=== PATIENT | male | born 1970 | race Caucasian/White ===

== ENCOUNTER 2021-01-01 09:29 | Inpatient (IN) ==
--- NOTE | 2020-11-27 15:02 | PAT Medication Instructions ---
Medication Instructions Date of Service November 27, 2020 Home Medications buprenorphine-naloxone [Suboxone] 0.3 tab SUBLINGUAL Q4H pregabalin [Lyrica] 150 mg PO TID venlafaxine 150 mg PO HS ASK your prescriber and surgeon buprenorphine-naloxone [Suboxone] 0.3 tab SUBLINGUAL Q4H Take morning of surgery With a small sip of water, OTHERWISE NOTHING TO EAT OR DRINK AFTER MIDNIGHT: pregabalin [Lyrica] 150 mg PO TID Take evening before surgery pregabalin [Lyrica] 150 mg PO TID venlafaxine 150 mg PO HS Other Notes If you have any questions please call us at [phone] or [phone] or [phone] or [phone]
--- NOTE | 2020-12-01 10:34 | Anesthesiology Consultation ---
Date of Service December 01, 2020 Assessment & Plan (1) Encounter for pre-operative examination: - COVID screening: Per assessment on 12/01: Travel screen- Lives in [facility]. Travel to [facility] (owns cabin there, stays alone every other week end). Patient follows strict COVID precautions guidelines in public. Uses PPE. No out of state travel planned prior to surgery. No known COVID-19 positive contacts or current COVID-19 related symptoms. Surgeon arranging preop COVID testing. Awaiting results. - Suboxone use: Per patient, he denies any hx of opioid dependence and states he was started and continued on Suboxone many years ago for chronic pain. He states he is attempting to wean off prior to surgery but will let anesthesiologist know AM DOS if still taking. He will check with prescriber for preop instructions. Chart Review Chart Review: Acceptable Risk for Surgery and Patient seen in Pre Admission Testing Teaching & Discussion Pre-Anesthesia Teaching/Discussion Notes: Instructed NPO after midnight before surgery,except medications with 15 cc of water. Medication instructions provided according to the PAT guidelines. History Surgery Operation Date: 12/15/20 07:45 Proposed Procedures p L2-L3 Decompression, L2-L4 Fusion, L3-L5 Hardware Removal - Ronnie Quintana, Height/Weight Height: 5 ft 9 in Weight: 131 kg Allergies Allergy/AdvReac Type Severity Reaction Status Date / Time Iodinated Contrast Media Allergy Unknown Itching, Verified 12/01/20 10:34 swelling iodine Allergy Unknown Itching, Verified 12/01/20 10:34 swelling shellfish derived Allergy Unknown Swelling Verified 12/01/20 08:30 Medications Home Medications Medication Instructions Recorded Confirmed Last Taken buprenorphine-naloxone [Suboxone] 0.3 tab SUBLINGUAL Q4H 11/10/20 11/10/20 Unknown pregabalin [Lyrica] 150 mg PO TID 11/10/20 11/10/20 Unknown venlafaxine 150 mg PO HS 11/10/20 11/10/20 Unknown Past Medical History Medical History Anxiety Arthritis Chronic back pain LBP Depression Exercise / Class Metabolic Activity II 4-5 Yardwork/Stairs/Walk up hill Past Surgical History Surgical History Fusion of spine Lumbar History of arthroscopy Right knee x multiple History of eye surgery Right retinal repair History of sinus surgery History of tonsillectomy Past Anesthesia History No Hx of Anesthesia Complications and No Family Hx of Anesthesia Complications History of PONV No Hx of PONV and No Hx of Motion Sickness Social History Smoking Status: Current every day smoker Smoking cigarettes per day: 20 cigs/day x 20+ years Do You Dip or Chew Tobacco: Yes (1 can (Skoal)/2 days- advised none AM DOS) Hx Alcohol Use: No Hx Substance Use: Yes (Suboxone daily for pain control) Review of Systems Patient denies chest pain, shortness of breath, dyspnea on exertion, joint pain, reflux, cough, wheezing, palpitations. Physical Exam Vital Signs VITALS BP 118/79 P 71 TEMP 97.8 SP02 96%RA RESP 16 PHYSICAL Full neck and c-spine range of motion. Full TMJ range of motion. TMD 3 finger breaths Mallampati Score 2 Dentition: missing molars Lungs: clear throughout to auscultation Cardiac: regular rate and rhythm, no murmurs noted Spine: normal Carotid arteries: negative bruit Extremities: no edema Short, thick neck Testing Laboratory Results 12/01/20 11:12 12/01/20 11:12 PT 10.0 Seconds (9.0-12.0) 12/01/20 11:12 INR 1.0 (0.9-1.1) 12/01/20 11:12 APTT 27.0 Seconds (21.0-31.0) 12/01/20 11:12 Urine Color Yellow 12/01/20 11:12 Urine Appearance Clear (Clear) 12/01/20 11:12 Urine pH 6.0 (4.5-7.5) 12/01/20 11:12 Ur Specific [place] 1.024 (1.000-1.030) 12/01/20 11:12 Urine Protein Negative (Negative) 12/01/20 11:12 Urine Glucose (UA) Negative (Negative) 12/01/20 11:12 Urine Ketones Negative (Negative) 12/01/20 11:12 Urine Nitrite Negative (Negative) 12/01/20 11:12 Ur Leukocyte Esterase Negative (Negative) 12/01/20 11:12 Blood Type O Positive 12/01/20 11:12 Antibody Screen NEGATIVE 12/01/20 11:12 Electrocardiogram Date: 12/01/20 Findings: + NSR @ (63) Chest X-Ray Date: 12/01/20 FINDINGS: Cardiac silhouette is upper limits of normal in size. Mediastinal contours are unchanged and within normal limits. There is no pneumothorax, pleural effusion, airspace consolidation or overt pulmonary edema. Bones of the chest appear grossly intact. IMPRESSION: No acute process.
--- NOTE | 2020-12-01 11:47 | XRay Report ---
XR chest Pre-admission PA/Lat HISTORY: 50 years-old Male pat preoperative exam. No acute chest complaints COMPARISON: Chest radiographs 11/08/2011 TECHNIQUE: PA and lateral views of the chest FINDINGS: Cardiac silhouette is upper limits of normal in size. Mediastinal contours are unchanged and within n ormal limits. There is no pneumothorax, pleural effusion, airspace consolidation or overt pulmonary e vineet. Bones of the chest appear grossly intact. IMPRESSION: No acute process. ACT 112: Negative or not required by law. The above report was generated using voice recognition software. It may contain grammatical, syntax o r spelling errors. Electronically signed by: Castro Villanueva M.D. 12/01/2020 11:46 AM
[2020-12-01 12:51] LABS: Appearance Urine Clear (Clear); Basophils # (auto) 0.05 K/uL (0-0.2); Basophils % (auto) 0.5 %; Bilirubin Urine Negative (Negative); Blood Urine Negative (Negative); Color Urine Yellow; Eosinophils % (auto) 3.3 %; Glucose Urine UA Negative (Negative); Hematocrit (blood only) 43.8 % (42-52); Immature Granulocytes # (auto) 0.04 K/uL (0.00-0.02); Immature Granulocytes % (auto) 0.4 %; Ketones Urine Negative (Negative); Leukocyte Esterase Urine Negative (Negative); Lymphocytes # (auto) 3.54 K/uL (1.2-3.4); Lymphocytes % (auto) 38.4 %; Mean Corpuscular Hgb Conc 34.2 g/dL (32-36); Mean Corpuscular Volume 93.4 fL (80-100); Mean Platelet Volume 10.5 fL (7.4-10.4); Monocytes # (auto) 0.44 K/uL (0.11-0.59); Monocytes % (auto) 4.8 %; Neutrophils # (auto) 4.86 K/uL (1.4-6.5); Neutrophils % (auto) 52.6 %; Nitrite Urine Negative (Negative); Platelet Count 263 K/uL (130-400); Protein Urine Negative (Negative); RDW Standard Deviation 44.8 fL (36.4-46.3); Red Blood Count 4.69 M/uL (4.7-6.1); Specific Gravity Urine 1.024 (1.000-1.030); Urobilinogen Urine Negative (Negative); White Blood Count 9.23 K/uL (4.8-10.8)
[2020-12-01 14:44] LABS: BUN Creatinine Ratio 12.8 (10-20); Calcium 9.4 mg/dl (8.5-10.1); Creatinine Clr Calc Pharmacy 128.9 ml/min; Est GFR (African American) 111.3; Est GFR (Non-African American) 96.1; Potassium 4.6 mmol/L (3.5-5.1)
--- NOTE | 2020-12-01 21:08 | Electrocardiogram Report ---
Test Reason : Blood Pressure : / mmHG Vent. Rate : 063 BPM Atrial Rate : 063 BPM P-R Int : 128 ms QRS Dur : 082 ms QT Int : 388 ms P-R-T Axes : 051 024 050 degrees QTc Int : 397 ms Normal sinus rhythm Normal ECG When compared with ECG of 08-NOV-2011 09:10, No significant change was found Confirmed by Hank Stringer ([id number]) on 12/01/2020 9:08:29 PM Referred By: Ronnie Quintana Confirmed By:Hank Stringer
[~2021-01-01 09:29] MED LIST: ACETAMINOPHEN 500 MG TAB PO SCH; CeleBREX 200 MG CAP PO SCH; GABAPENTIN 900 MG DOSE PO SCH; LR 15ML/HR IV SCH; SUGAMMADEX SODIUM 200 MG/2 ML VIAL IV ONE
[2021-01-01] MEDS ORDERED: GLYCOPYRROLATE 0.2 MG/ML VIAL ONE (10:00)
[2021-01-01] MEDS ORDERED: PROPOFOL IV EMULSION 10 MG/ML 20 ML VIAL IV ONE (10:00)
[2021-01-01] MEDS ORDERED: MIDAZOLAM HCL 1 MG/ML 2ML VIAL ONE (10:00)
[2021-01-01] MEDS ORDERED: DEXAMETHASONE SOD INJ 4 MG/ML VIAL ONE (10:00)
[2021-01-01] MEDS ORDERED: ONDANSETRON INJ 2 MG/ML 2 ML VIAL ONE (10:00)
[2021-01-01] MEDS ORDERED: LIDOCAINE HCL 2% 2 ML VIAL/AMP(20MG/ML) INFIL ONE (10:00)
[2021-01-01] MEDS ORDERED: NEOSTIGMINE METHYLSULFATE 1 MG/ML 10ML VIAL ONE (10:00)
[2021-01-01] MEDS ORDERED: fentaNYL citrate 100 MCG/2 ML VIAL ONE (10:01)
--- NOTE | 2021-01-01 10:24 | History & Physical Bridge Note ---
Date of Service January 01, 2021 History & Physical Bridge Note I have examined the patient, reviewed the History & Physical and in the interval since the performance of the History & Physical I have noted the following changes of clinical significance: no changes noted
--- NOTE | 2021-01-01 10:25 | History & Physical Report ---
Date of Service January 01, 2021 Assessment & Plan (1) Neurogenic claudication due to lumbar spinal stenosis: Admission and Anticipated Discharge Date Admission Date: L2-L3 decompression, L2 L4 fusion, L3-L5 hardware removal History of Present Illness Chief Complaint: Back and leg pain Primary Care Provider: Barbie Zayas MD This is a 50-year-old male presents with chronic chest and back and leg pain. Failing course of nonoperative care is here for surgical invention. Allergies Allergy/AdvReac Type Severity Reaction Status Date / Time Iodinated Contrast Media Allergy Intermediate Itching, Verified 01/01/21 09:45 swelling iodine Allergy Intermediate Itching, Verified 01/01/21 09:45 swelling shellfish derived Allergy Intermediate Swelling Verified 01/01/21 09:45 Home Medications Medication Instructions Recorded Confirmed Type buprenorphine-naloxone [Suboxone] 0.3 tab SUBLINGUAL Q4H 11/10/20 01/01/21 History pregabalin [Lyrica] 150 mg PO TID 11/10/20 01/01/21 History venlafaxine 150 mg PO HS 11/10/20 01/01/21 History menthol [Biofreeze (menthol)] 1 applic TOPICAL TID PRN 01/01/21 01/01/21 History oxycodone-acetaminophen [Percocet] 1 tab PO Q4H PRN 01/01/21 01/01/21 History Past Med/Surg History Medical History (Updated 01/01/21 @ 10:25 by Ronnie Quintana DO) Anxiety Arthritis Chronic back pain LBP Depression History of COVID-19 Tested positive on 12/11/20. Pt was tested for preop testing. Patient was asymptomatic and remains asymptomatic at this time (12/27/20). 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
[2021-01-01] MEDS ORDERED: BUPIVACAINE/EPINEPHRINE 0.5% MPF 1:200,000 30 ML VIAL ONE (10:34)
[2021-01-01] MEDS ORDERED: BACITRACIN INJ 50,000 UNIT VIAL ONE (10:35)
[2021-01-01] MEDS ORDERED: ePHEDrine sulfate 50 MG/ML AMP IV PRN (10:37)
[2021-01-01] MEDS ORDERED: HYDROmorphone INJ 1 MG/ML SYRINGE IV PRN (10:37)
[2021-01-01] MEDS ORDERED: ONDANSETRON INJ 2 MG/ML 2 ML VIAL IV PRN ×2 (10:37→14:14)
[2021-01-01] MEDS ORDERED: ATROPINE SULFATE 0.1 MG/ML 10ML SYR IV PRN (10:37)
[2021-01-01] MEDS ORDERED: HYDROmorphone INJ 2 MG/ML SYR/VIAL ONE (11:18)
[2021-01-01] MEDS ORDERED: FLOSEAL HEMOSTATIC MATRIX 10ML TOP ONE (11:45)
--- NOTE | 2021-01-01 12:42 | Operative Report ---
Post Operative Report Pre & Post Diagnosis Operation Date: 01/01/21 10:55 Pre-Op Diagnosis: Lumbar spinal stenosis with neurogenic claudication Post-Op Diagnosis: Same I identified the patient and participated in the time-out.: Yes Procedure Operation Date: 01/01/21 10:55 Actual Procedures #1 removal of posterior instrumentation L3-4 L4-5. #2 exploration of lumbar fusion L3-4 L4-5. #3 lumbar decompression with bilateral medial facetectomies and foraminotomies L1-2 and L2-3. #4 posterior spinal fusion L2-3. #5 placement posterior instrumentation L2-3 L3-4. #6 interbody fusion L2-3. #7 placement peek cage 13 x 26 mm at L2-3. #8 placement of locally harvested morselized autograft in the posterior lateral gutters. #9 placement of I factor in the interbody space and posterior lateral gutters. Surgeon Ronnie Quintana, DO Wood Gouger Nay Mcknight Estimated Blood Loss 250 Findings See Below The patient is 5 foot 9 inches tall weighing over 128 kg with a BMI in excess of 41. The patient's body habitus did contribute to significant technical difficulty adding at least 50% increase to the operative time. Specimens None Indications This is a 50-year-old male who presents above-mentioned diagnosis after failing course of nonoperative care is here for the above-mentioned procedure. Description of Procedure Patient was met with identified informed consent obtained. Patient was then taken to the operative suite underwent a patient placed in a prone position the [place] table top Manohar frame. All bony prominences well-padded eyes inspected to ensure no external pressure placed upon them. At this point the lumbar spine was prepped and draped in a sterile fashion. Sharp dissection with the assistance of Bovie cautery was performed down to and exposing the lamina and transverse processes of L2 and the instrumentation at L3-L4-L5 bilaterally. And then proceeded move the hardware bilaterally explore the fusion mass noting it to be mature and intact. Then performed a complete laminectomy of L2 partial laminectomy L1 including bilateral medial facetectomies and foraminotomies addressing severe spinal stenosis. Pedicle screws were then placed in L2-L3-L4 bilaterally with assistance of fluoroscopy and the proper sized sharmila placed. By way of a transforaminal portion left complete discectomy of L2-3 was performed endplates curetted to subcortical bleeding bone and a 13 x 26 mm peek cage filled with I factor tapped in position. The rods were then compressed locked into final position bilaterally. The transverse processes of L2 and L3 burred to subcortically bone. Locally harvested morselized autograft and I factor was then placed in the posterior lateral gutters. 15 round BROOK drain inserted. The incision was then closed with 1 Vicryl the fascia 2-0 Vicryl subcutaneously and 4 Monocryl for final skin closure. Steri-Strip sterile dressings placed. Patient will continue PACU stable condition. Please note spinal cord monitoring was utilized at the procedure no changes noted. Lastly Nay Mcknight was present throughout the entire procedure involved the patient positioning complex portions of the surgery and final skin closure. I attest to the content of the Intraoperative Record and any orders documented therein. Any exceptions are noted below.
--- NOTE | 2021-01-01 13:02 | Fluoroscopy Report ---
FL lumbar spine 2-3V HISTORY: 50 years-old Male L3-5 REMOVE HARDWARE/L2-4 DECOMPRESSION/FUSION/INTERBODY chronic low back pain COMPARISON: Lumbar spine radiographs the 2011 TECHNIQUE: 3 spot fluoroscopic images of the lumbar spine were obtained utilizing 12.8 seconds fluoro scopy time FINDINGS: Posterior interbody sharmila fusion hardware is noted at what appears to be the L2-L4 levels with discecto my changes at L2-L3. Discectomy changes at L4-L5 with interval removal of the L5 pedicle screws. The hardware appears intact. No retained foreign body identified on these images. IMPRESSION: Fluoroscopic assistance as above. ACT 112: Negative or not required by law. The above report was generated using voice recognition software. It may contain grammatical, syntax o r spelling errors. Electronically signed by: Castro Villanueva M.D. 01/01/2021 1:01 PM
[2021-01-01] MEDS: fentaNYL citrate 100 MCG/2 ML VIAL IV PRN ×4 (13:25→13:40)
[2021-01-01] MEDS ORDERED: diphenhydrAMINE Capsule 25 MG CAP PO PRN (14:14)
[2021-01-01] MEDS ORDERED: LORazepam 0.5 MG TAB PO PRN (14:14)
[2021-01-01] MEDS ORDERED: DO NOT ADMINISTER PNEUMOCOCCAL VACCINE PRN (14:14)
[2021-01-01] MEDS ORDERED: HYDROmorphone INJ 0.5 MG/0.5 ML SYR IV PRN (14:14)
[2021-01-01] MEDS ORDERED: PROMETHAZINE HCL 12.5 MG in SODIUM CHLORIDE 0.9% 50 ML IV PRN (14:14)
[2021-01-01] MEDS ORDERED: ONDANSETRON 4 MG OD TAB PO PRN (14:14)
[2021-01-01] MEDS ORDERED: ACETAMINOPHEN 500 MG TAB PO PRN (14:14)
[2021-01-01] MEDS ORDERED: hydrOXYzine HCl 25 MG TAB PO PRN (14:14)
[2021-01-01] MEDS ORDERED: FAMOTIDINE 20 MG TAB PO PRN (14:14)
[2021-01-01] MEDS ORDERED: bisacodyL 10 MG SUPP PR PRN (14:14)
[2021-01-01] MEDS ORDERED: LORazepam 0.5 MG/1 ML VIAL IV PRN (14:14)
[2021-01-01] MEDS ORDERED: SOD PHOSPHATE/SOD BIPHOSPHATE ENEMA 132 ML BTL PR PRN (14:14)
[2021-01-01] MEDS ORDERED: METOCLOPRAMIDE HCL INJ 5 MG/ML 2 ML VIAL IV PRN (14:14)
[2021-01-01] MEDS ORDERED: NALOXONE HCL 0.4 MG/1 ML VIAL/CARP IV PRN (14:14)
[2021-01-01] MEDS ORDERED: MAGNESIUM HYDROXIDE SUSP 30 ML UDC PO PRN (14:14)
[2021-01-01] MEDS ORDERED: ALUMINUM/MAGNESIUM SUSP 30 ML UDC PO PRN (14:14)
[2021-01-01] MEDS ORDERED: DO NOT ADMINISTER FLU VACCINE PRN (14:14)
--- NOTE | 2021-01-01 14:31 | Anesthesiology Progress Note ---
Date of Service January 01, 2021 Anesthesia Post Procedure Vital Signs Vital Signs: Temp Pulse Resp BP Pulse Ox 01/01/21 13:55 88 17 138/95 96 01/01/21 13:50 97.5 F L 83 15 127/91 98 01/01/21 13:40 100 H 17 154/97 H 96 01/01/21 13:30 98 H 13 173/101 H 94 01/01/21 13:20 106 H 16 149/108 H 98 01/01/21 13:10 94 H 20 168/102 H 94 01/01/21 13:00 97.5 F L 102 H 12 176/104 H 94 01/01/21 09:56 98.1 F 84 20 134/92 96 Pain Intensity Lower Back: Pain Intensity: 6 Transfer of Care Handoff Completed per policy Notes Mental Status: alert / awake / arousable and participated in evaluation Patient Amnestic to Procedure: Yes Nausea / Vomiting: adequately controlled Pain: adequately controlled Airway Patency, RR, SpO2: stable & adequate BP & HR: stable & adequate Hydration State: stable & adequate Anesthetic Complications: no major complications apparent and Pt Satisfied with anesthetic care
[2021-01-01] MEDS: HYDROmorphone INJ 1 MG/ML SYRINGE IV PRN ×2 (14:33→17:43)
[2021-01-01] MEDS: LACTATED RINGER'S 1,000 ML IV SCH ×2 (14:34→20:57)
[2021-01-01] MEDS: PREGABALIN 150 MG CAP PO SCH ×2 (14:53→20:56)
[2021-01-01] MEDS: oxyCODONE HCL IR 5 MG TAB (IMMEDIATE RELEASE) PO PRN ×3 (15:13→20:56)
[2021-01-01] MEDS: ACETAMINOPHEN 1,000 MG/100 ML VIAL IV PRN (15:13)
--- NOTE | 2021-01-01 15:21 | Hospitalist Consultation ---
Date of Consultation January 01, 2021 Assessment & Plan (1) Neurogenic claudication due to lumbar spinal stenosis: - POD#0 L2-L3 decompression, L2-L4 fusion, L3-L5 hardware removal by Dr. Quintana - activity and wound care orders as per ortho - pain control with bowel regimen - PT/OT - monitor H/H for acute blood loss anemia and transfuse blood products PRN - EBL 250 cc (2) Anxiety: -Continue home medications (3) DVT prophylaxis: -TEDs/SCDs as per spine Ortho Thank you for this consultation. We will follow the patient with you during their hospital stay. You can reach a member of the [facility] Hospitalist Team 14/04 via [facility] [place] [facility]. Supervising Physician Co-Signing Physician Notes Care coordinated with Taniya Sheppard CRNP. Agree with above note. Patient seen and examined. Please refer to her notes for full details. Vital signs reviewed. Physical exam: General exam: Alert and oriented. Not in acute distress. CVS: S1 and S2 heard, regular rate and rhythm, no murmurs. RS: Clear to auscultation, no wheezing or crackles. ABD: Soft, bowel sounds present, nontender, no distention. CLIENT CARE CONSULTANT: Nonfocal. Musculoskeletal : S/p Back surgery. Dressing intact EXT: No edema, no erythema. Labs: Reviewed. Assessment and plan: 50M with hx of chronic back pain, anxiety is s/p back surgery. Tolerated procedure ok. complains of pain at surgery site. Patient is on suboxone but stopped prior to surgery. S/p Back surgery hold suboxone Pain control Further management as per ortho Hx of anxiety on venlafaxine Other diagnosis and plan of care as per Taniya Sheppard. Mark mcfadden MD. History of Present Illness Reason for Consultation: Postop medical management Requesting Physician: Dr. Quintana Attending Physician: Dr. Palencia History of Present Illness 50-year-old male with PMH chronic back pain, anxiety, and other problems listed below who is s/p L2-L3 decompression, L2-L4 fusion, L3-L5 hardware removal today by Dr. Quintana. Postoperatively, the patient reports he is experiencing increased pain. Denies weakness, numbness, or tingling to lower extremities. No chest pain or shortness of breath. Denies lightheadedness, dizziness. No abdominal pain or nausea. Garcia catheter is in place draining clear yellow urine. Allergies Allergy/AdvReac Type Severity Reaction Status Date / Time Iodinated Contrast Media Allergy Intermediate Itching, Verified 01/01/21 09:45 swelling iodine Allergy Intermediate Itching, Verified 01/01/21 09:45 swelling shellfish derived Allergy Intermediate Swelling Verified 01/01/21 09:45 Home Medications Medication Instructions Recorded Confirmed Type buprenorphine-naloxone [Suboxone] 0.3 tab SUBLINGUAL Q4H 11/10/20 01/01/21 History pregabalin [Lyrica] 150 mg PO TID 11/10/20 01/01/21 History venlafaxine 150 mg PO HS 11/10/20 01/01/21 History menthol [Biofreeze (menthol)] 1 applic TOPICAL TID PRN 01/01/21 01/01/21 History oxycodone-acetaminophen [Percocet] 1 tab PO Q4H PRN 01/01/21 01/01/21 History Patient History Medical History (Updated 01/01/21 @ 15:19 by ELDA Canseco) Anxiety Arthritis Chronic back pain LBP Depression History of COVID-19 Tested positive on 12/11/20. Pt was tested for preop testing. Patient was asymptomatic and remains asymptomatic at this time (12/27/20). Surgical History Fusion of spine Lumbar History of arthroscopy Right knee x multiple History of eye surgery Right retinal repair History of sinus surgery History of tonsillectomy Family History Other Family history non-contributory Social History Smoking Status: Current every day smoker Cigarettes Per Day: 20 cigs/day x 20+ years; Second Hand Exposure: No; Do You Dip or Chew Tobacco: Yes (1 can (Skoal)/2 days- advised none AM DOS); Hx Alcohol Use: No Hx Substance Use: Yes (Suboxone daily for pain control) Preferred Language: Swedish Communication Ability: Effective Transcriber Required: No Beliefs That Will Affect Care: None Current Living Situation: Family Current Living Situation Comment: STEP SON LIVES WITH PT Other Information That Helps Us Care for You: No Feels Safe at Home: Yes Safety Concerns: Feels Safe At This Time Assistive Devices: Glasses Review of Systems Review of Systems: ROS per HPI, all other systems reviewed and negative Physical Exam Constitutional: WD/WN, vitals as above Eyes: PERRL, conjunctivae normal, anicteric sclerae ENMT: external ear and nose normal, oropharynx normal Respiratory: normal respiratory effort, lungs clear to auscultation Cardiovascular: Rate/Rhythm: regular rate and regular rhythm Vessels: normal peripheral pulses Extremities: no edema Gastrointestinal (Abdomen): normal bowel sounds, soft, nontender, no hepatosplenomegaly Musculoskeletal: no cyanosis or clubbing, extremities motor strength 5/5 S/p back surgery, pedal pushes and pulls strong bilaterally, drain in place draining bloody drainage Skin: no rashes, warm and dry Neurologic: PERRL, EOMI, accommodation nl, no face palsy, no dysarthria Psychiatric: A+Ox3, euthymic affect Results & Data Results & Data ([facility]) Vital Signs (Past 12 Hours) Vital Signs Temp Pulse Resp BP Pulse Ox 01/01/21 14:55 90 20 112/74 95 01/01/21 13:55 88 17 138/95 96 01/01/21 13:50 36.4 C L 83 15 127/91 98 01/01/21 13:40 100 H 17 154/97 H 96 01/01/21 13:30 98 H 13 173/101 H 94 01/01/21 13:20 106 H 16 149/108 H 98 01/01/21 13:10 94 H 20 168/102 H 94 01/01/21 13:00 36.4 C L 102 H 12 176/104 H 94 01/01/21 09:56 36.7 C 84 20 134/92 96
[2021-01-01] MEDS: KETOROLAC 30 MG/ML VIAL IV SCH (17:41)
[2021-01-01] MEDS: ceFAZolin 2000MG 2,000 MG/15 ML SYR IV SCH (17:42)
[2021-01-01] MEDS: traMADol HCL 50 MG TABLET PO PRN (19:32)
[2021-01-01] MEDS: DOCUSATE SODIUM/SENNA 50/8.6MG TAB PO SCH (20:57)
[2021-01-01] MEDS: VENLAFAXINE HCL XR 150 MG CAPXR PO SCH (20:57)
[2021-01-02] MEDS: ceFAZolin 2000MG 2,000 MG/15 ML SYR IV SCH (00:57)
[2021-01-02] MEDS: KETOROLAC 30 MG/ML VIAL IV SCH ×3 (00:57→13:12)
[2021-01-02] MEDS: oxyCODONE HCL IR 5 MG TAB (IMMEDIATE RELEASE) PO PRN ×5 (00:58→23:27)
[2021-01-02] MEDS: traMADol HCL 50 MG TABLET PO PRN ×3 (04:16→21:00)
[2021-01-02] MEDS: POLYETHYLENE (MIRALAX) 17 GM PACK PO SCH ×2 (05:57→13:13)
[2021-01-02] MEDS: ACETAMINOPHEN 1,000 MG/100 ML VIAL IV PRN (06:06)
[2021-01-02 08:14] LABS: Basophils # (auto) 0.02 K/uL (0-0.2); Basophils % (auto) 0.1 %; Eosinophils # (auto) 0.06 K/uL (0-0.5); Eosinophils % (auto) 0.3 %; Hemoglobin 12.9 g/dL (14.0-18.0); Immature Granulocytes # (auto) 0.06 K/uL (0.00-0.02); Immature Granulocytes % (auto) 0.3 %; Lymphocytes # (auto) 4.75 K/uL (1.2-3.4); Lymphocytes % (auto) 25.2 %; Mean Corpuscular Hemoglobin 31.9 pg (25-34); Mean Corpuscular Hgb Conc 33.9 g/dL (32-36); Mean Corpuscular Volume 94.1 fL (80-100); Mean Platelet Volume 10.7 fL (7.4-10.4); Monocytes # (auto) 1.26 K/uL (0.11-0.59); Monocytes % (auto) 6.7 %; Neutrophils # (auto) 12.67 K/uL (1.4-6.5); Neutrophils % (auto) 67.4 %; Platelet Count 257 K/uL (130-400); RDW Coefficient of Variation 13.2 % (11.5-14.5); RDW Standard Deviation 45.5 fL (36.4-46.3); Red Blood Count 4.04 M/uL (4.7-6.1); White Blood Count 18.82 K/uL (4.8-10.8)
[2021-01-02] MEDS: PREGABALIN 150 MG CAP PO SCH ×3 (08:14→20:37)
--- NOTE | 2021-01-02 08:25 | Hospitalist Progress Note ---
Date of Service January 02, 2021 Assessment & Plan (1) Neurogenic claudication due to lumbar spinal stenosis: POD#1 L2-L3 decompression, L2-L4 fusion, L3-L5 hardware removal by Dr. Quintana tolerated procedure well EBL 250ml; ARIA drain 415ml activity and wound care orders as per ortho pain control with bowel regimen PT/OT monitor H/H for acute blood loss anemia and transfuse blood products PRN Anemia, acute bloss loss and dilutional pre op hgb 15.0, hgb 12.9 today no need for transfusion monitor h/h and ARIA outpt Leukcocytosis wbc 18k no s/sx of infection likely reactive monitor (2) Anxiety: Continue home medications (3) Obesity, morbid, BMI 40.0-49.9: BMI 41.9 encourage lifestyle modifications (4) DVT prophylaxis: TEDs/SCDs as per spine Ortho Pt was seen and examined in collaboration with Dr. Rand, please see addendum Thank you for this consultation. We will follow the patient with you during their hospital stay. You can [facility] via the [facility] role in [employer] Text. Admission and Anticipated Discharge Date Admission Date: January 01, 2021 Supervising Physician Co-Signing Physician Notes Patient is seen and examined at bedside. Denies any significant pain at surgical site. Sitting in chair comfortably during my encounter. Also denies any chest pain, shortness of breath, dizziness, nausea, abdominal pain. Reports minimal left thigh numbness. Had bowel movement. On exam patient is obese, no apparent distress, normocephalic atraumatic, lungs are clear to auscultation, normal breath sounds, S1-S2, no murmur, no pedal edema, abdomen soft, nontender, normal bowel sounds, back--surgical site in dressing,+ drain, alert, awake, oriented, grossly no focal neurological deficits. Lumbar spinal stenosis with neurogenic claudication S/P lumbar decompression, fusion surgery by Dr. Quintana. Leukocytosis in setting of Decadron use postop. Monitor for postop anemia. Con tinue bowel regimen to prevent constipation. Continue incentive spirometry. DVT prophylaxis, activity, wound care as per primary team. I personally reviewed the record. Patient is interviewed and examined at bedside. Patient's care is coordinated with Whit Wing PA-C. Please refer to the documentation above for details of patient's presentation and for discussion of other issues. Subjective Pt was seen and examined in 322-1. F/U Lumbar surgery and anxiety. Feels great this morning. His back/leg pain is much improved. Denies f/c/s, c hest pain, sob, n/v/d, abdominal pain. He had BM this morning. Continues to have madrid cath in place which will be removed. Nurse at bedside offers no concerns. Review of Systems Review of Systems: All systems reviewed & are unremarkable except as noted in HPI & below Physical Exam Physical Exam: Gen: WD/WN, M, sitting up at bedside, NAD, A&O x3 HEENT: Normocephalic, atraumatic, conjunctivae moist, sclerae anicteric, mucous membranes moist. Lung: Clear to Auscultation bilaterally, no wheezes/rales/rhonchi Heart: Regular rate, regular rhythm, no murmurs, rubs, or gallops Abdomen: Soft, NT, ND +BS x 4 Extremities: No edema, lumbar dressing cdi, aria drain in tact with sersosang drainage Skin: Warm, no rash, negative turgor. Results & Data Results & Data ([facility]) Vital Signs (Past 12 Hours) Vital Signs Temp Pulse Pulse Resp BP Pulse Ox 01/02/21 08:02 36.7 C 84 16 137/81 99 01/02/21 04:09 36.9 C 84 16 107/68 93 01/02/21 00:56 36.7 C 79 18 117/83 96 01/01/21 21:03 36.7 C 83 16 132/78 94 Laboratory Results Short CBC 01/02/21 Range/Units 07:09 WBC 18.82 H (4.8-10.8) K/uL Hgb 12.9 L (14.0-18.0) g/dL Hct 38.0 L (42-52) % Plt Count 257 (130-400) K/uL Medications Administered Hydromorphone HCl (Hydromorphone Inj 1 Mg/Ml Syringe) 1 mg IV Q3H PRN PRN Reason: severe pain (scale 7-10) Stop: 01/15/21 14:13 Last Admin: 01/01/21 17:43 Dose: 1 mg Documented by: [id number] Admin: 01/01/21 14:33 Dose: 1 mg Documented by: [id number] Acetaminophen (Ofirmev) 1,000 mg in 100 mls @ 400 mls/hr IV Q8H PRN PRN Reason: MILD Pain Rating 1,2,3 Stop: 01/02/21 14:13 Last Infusion: 01/02/21 06:33 Dose: 0 mls/hr Documented by: [id number] Admin: 01/02/21 06:06 Dose: 400 mls/hr Documented by: [id number] Infusion: 01/01/21 15:28 Dose: 0 mls/hr Documented by: [id number] Admin: 01/01/21 15:13 Dose: 400 mls/hr Documented by: [id number] Ketorolac Tromethamine (Ketorolac 30 Mg/Ml Vial) 30 mg IV Q6 [facility] Stop: 01/02/21 12:01 Last Admin: 01/02/21 05:58 Dose: 30 mg Documented by: [id number] Admin: 01/02/21 00:57 Dose: 30 mg Documented by: [id number] Admin: 01/01/21 17:41 Dose: 30 mg Documented by: [id number] Lorazepam (Lorazepam 0.5 Mg Tab) 0.5 mg PO Q8H PRN PRN Reason: Sedation/Anxiety Stop: 01/31/21 14:13 Last Admin: 01/01/21 14:32 Dose: 0.5 mg Documented by: [id number] Oxycodone HCl (Oxycodone Hcl Ir 5 Mg Tab (Immediate Release)) 5 - 10 mg PO Q4H PRN PRN Reason: Moderate-Severe Pain & Pre PT Stop: 01/15/21 14:13 Last Admin: 01/02/21 08:14 Dose: 10 mg Documented by: [id number] Admin: 01/02/21 00:58 Dose: 10 mg Documented by: [id number] Admin: 01/01/21 20:56 Dose: 10 mg Documented by: [id number] Admin: 01/01/21 17:01 Dose: 5 mg Documented by: [id number] Admin: 01/01/21 15:13 Dose: 5 mg Documented by: [id number] Polyethylene Glycol (Polyethylene (Miralax) 17 Gm Pack) 17 gm PO Q6 [facility] Stop: 02/01/21 05:59 Last Admin: 01/02/21 05:57 Dose: 17 gm Documented by: [id number] Pregabalin (Pregabalin 150 Mg Cap) 150 mg PO TID GABI Stop: 01/31/21 14:13 Last Admin: 01/02/21 08:14 Dose: 150 mg Documented by: [id number] Admin: 01/01/21 20:56 Dose: 150 mg Documented by: [id number] Admin: 01/01/21 14:53 Dose: 150 mg Documented by: [id number] Senna/Docusate Sodium (Docusate Sodium/Senna 50/8.6mg Tab) 2 tab PO HS GABI Stop: 01/31/21 20:59 Last Admin: 01/01/21 20:57 Dose: 2 tab Documented by: [id number] Tramadol HCl (Tramadol Hcl 50 Mg Tablet) 50 - 100 mg PO Q4H PRN PRN Reason: Moderate-Severe Pain & Pre PT Stop: 01/31/21 14:13 Last Admin: 01/02/21 04:16 Dose: 50 mg Documented by: [id number] Admin: 01/01/21 19:32 Dose: 50 mg Documented by: [id number] Venlafaxine HCl (Venlafaxine Hcl Xr 150 Mg Capxr) 150 mg PO HS GABI Stop: 01/31/21 20:59 Last Admin: 01/01/21 20:57 Dose: 150 mg Documented by: [id number] Discontinued Medications Acetaminophen (Acetaminophen 500 Mg Tab) 1,000 mg PO PREOP GABI Stop: 01/01/21 18:00 Last Admin: 01/01/21 09:50 Dose: 1,000 mg Documented by: [id number] Bacitracin (Bacitracin Inj 50,000 Unit Vial) Confirm Administered Dose 50,000 units .ROUTE .STK-MED ONE Stop: 01/01/21 10:36 Last Admin: 01/01/21 12:35 Dose: 50,000 units Documented by: [id number] Bupivacaine HCl/Epinephrine Bitart (Bupivacaine/Epinephrine 0.5% Mpf 1:200,000 30 Ml Vial) Confirm Administered Dose 30 ml .ROUTE .STK-MED ONE Stop: 01/01/21 10:35 Last Admin: 01/01/21 12:22 Dose: 30 ml Documented by: [id number] Celecoxib (Celebrex 200 Mg Cap) 200 mg PO PREOP GABI Stop: 01/01/21 18:00 Last Admin: 01/01/21 09:50 Dose: 200 mg Documented by: [id number] Fentanyl Citrate (Fentanyl Citrate 100 Mcg/2 Ml Vial) 50 mcg IV Q5M PRN PRN Reason: PACU Use Only-Pain Stop: 01/01/21 18:37 Last Admin: 01/01/21 13:40 Dose: 50 mcg Documented by: [id number] Admin: 01/01/21 13:35 Dose: 50 mcg Documented by: [id number] Admin: 01/01/21 13:30 Dose: 50 mcg Documented by: [id number] Admin: 01/01/21 13:25 Dose: 50 mcg Documented by: [id number] Gabapentin (Gabapentin 900 Mg Dose) 900 mg PO PREOP GABI Stop: 01/01/21 18:00 Last Admin: 01/01/21 09:49 Dose: 900 mg Documented by: [id number] Cefazolin Sodium (Ancef 3000mg) 72.5 mls @ 130 mls/hr IV PREOP GABI; Protocol Stop: 01/01/21 18:00 Last Infusion: 01/01/21 14:35 Dose: 0 mls/hr Documented by: [id number] Admin: 01/01/21 10:52 Dose: 130 mls/hr Documented by: [id number] Lactated Ringer's (Lr) 1,000 mls @ 15 mls/hr IV .Q24H GABI Stop: 01/02/21 05:59 Last Infusion: 01/01/21 10:52 Dose: 0 mls/hr Documented by: [id number] Admin: 01/01/21 09:49 Dose: 15 mls/hr Documented by: [id number] Cefazolin Sodium (Ancef 2000mg) 2,000 mg in 15 mls @ 3.75 mls/min IV Q8H GABI; Protocol Stop: 01/02/21 02:03 Last Admin: 01/02/21 00:57 Dose: 3.75 mls/min Documented by: [id number] Admin: 01/01/21 17:42 Dose: 3.75 mls/min Documented by: [id number] Lactated Ringer's (Lr) 1,000 mls @ 150 mls/hr IV .Q6H40M GABI Stop: 01/31/21 14:59 Last Infusion: 01/02/21 02:41 Dose: 0 mls/hr Documented by: [id number] Admin: 01/01/21 20:57 Dose: 150 mls/hr Documented by: [id number] Infusion: 01/01/21 20:57 Dose: 150 mls/hr Documented by: [id number] Admin: 01/01/21 14:34 Dose: 150 mls/hr Documented by: [id number] Miscellaneous ( Floseal Hemostatic Matrix 10ml) 20 ml TOP ONCE ONE Stop: 01/01/21 11:46 Last Admin: 01/01/21 12:42 Dose: 16 ml Documented by: [id number]
[2021-01-02 08:43] LABS: BUN Creatinine Ratio 20.4 (10-20); Calcium 8.5 mg/dl (8.5-10.1); Creatinine Clr Calc Pharmacy 160.4 ml/min; Est GFR (African American) 125.5; Est GFR (Non-African American) 108.3
--- NOTE | 2021-01-02 08:48 | Orthopedic Progress Note ---
Date of Service January 02, 2021 Assessment & Plan (1) Neurogenic claudication due to lumbar spinal stenosis: Admission and Anticipated Discharge Date Admission Date: January 01, 2021 This time we will continue physical therapy monitor his BROOK operatively discharge home in the next few days. Subjective Back pain controlled leg pain markedly improved Physical Exam Physical Exam: Patient sitting up at the bedside is good strength testing. Appears comfortable. Results & Data ([facility]) Vital Signs (Past 12 Hours) Vital Signs Temp Pulse Pulse Resp BP Pulse Ox 01/02/21 08:02 36.7 C 84 16 137/81 99 01/02/21 04:09 36.9 C 84 16 107/68 93 01/02/21 00:56 36.7 C 79 18 117/83 96 01/01/21 21:03 36.7 C 83 16 132/78 94
[2021-01-02] MEDS: dexAMETHasone 8 MG in SYRINGE 0 ML IV SCH (13:11)
[2021-01-02] MEDS: DOCUSATE SODIUM/SENNA 50/8.6MG TAB PO SCH (20:36)
[2021-01-02] MEDS: VENLAFAXINE HCL XR 150 MG CAPXR PO SCH (20:37)
[2021-01-03] MEDS: oxyCODONE HCL IR 5 MG TAB (IMMEDIATE RELEASE) PO PRN ×3 (02:37→13:08)
[2021-01-03] MEDS: traMADol HCL 50 MG TABLET PO PRN ×2 (06:27→13:55)
[2021-01-03 07:14] LABS: Hematocrit (blood only) 37.5 % (42-52); Mean Corpuscular Hemoglobin 32.3 pg (25-34); Mean Corpuscular Hgb Conc 34.7 g/dL (32-36); Mean Corpuscular Volume 93.3 fL (80-100); Mean Platelet Volume 10.2 fL (7.4-10.4); Platelet Count 251 K/uL (130-400); RDW Coefficient of Variation 13.3 % (11.5-14.5); RDW Standard Deviation 45.5 fL (36.4-46.3); Red Blood Count 4.02 M/uL (4.7-6.1); White Blood Count 15.85 K/uL (4.8-10.8)
[2021-01-03 07:49] LABS: BUN Creatinine Ratio 23.4 (10-20); Calcium 8.6 mg/dl (8.5-10.1); Creatinine Clr Calc Pharmacy 169.6 ml/min; Est GFR (African American) 128.4; Est GFR (Non-African American) 110.8; Potassium 3.9 mmol/L (3.5-5.1)
[2021-01-03] MEDS: dexAMETHasone 8 MG in SYRINGE 0 ML IV SCH ×2 (08:07→08:30)
[2021-01-03] MEDS: PREGABALIN 150 MG CAP PO SCH ×2 (08:13→13:30)
--- NOTE | 2021-01-03 08:27 | Discharge Summary ---
Date of Service January 03, 2021 Admission HPI Per Admitting Provider This is a 50-year-old male presents with chronic chest and back and leg pain. Failing course of nonoperative care is here for surgical invention. Principal Diagnosis Lumbar spinal stenosis with neurogenic claudication Discharge Data Allergies Allergy/AdvReac Type Severity Reaction Status Date / Time Iodinated Contrast Media Allergy Intermediate Itching, Verified 01/01/21 09:45 swelling iodine Allergy Intermediate Itching, Verified 01/01/21 09:45 swelling shellfish derived Allergy Intermediate Swelling Verified 01/01/21 09:45 Consultations 01/01/21 14:14 Consult Hospitalist Routine Procedures Performed Operation Date: 01/01/21 10:55 Actual Procedures p L2-L3 Decompression, L2-L4 Fusion, Spinal Cord Monitoring - Ronnie Quintana DO s L3-L5 Hardware Removal - Ronnie Quintana DO Ordered Studies 01/01/21 10:55 FL fluoroscopy <1hr Routine FL lumbar spine 2-3V Routine Hospital Course (1) Neurogenic claudication due to lumbar spinal stenosis: Patient underwent lumbar decompression fusion trial as well as leg orthopedic for possibly. Postop day 1 is up and ambulating progressed appropriately to postop day #2 BROOK drain decreasing probably. Pain well contro lled. Excellent strength testing. Subsequent discharge home. Discharge orders instructions from the chart for further review. Total Time Total Time Spent Total Time Spent (In Minutes): 20 minutes Discharge Plan Discharge Items Patient Disposition: Home - Self-Care Reason For Visit: Other Intervertebral Disc Cisplacement, Lumbar Reg Discharge Diagnosis: Lumbar spinal stenosis with neurogenic claudication Activity: As commented below Non-emergency contact: Primary Care Provider Call non-emergency contact if: you have any medication questions Follow-up/Referrals: Barbie Zayas MD [Primary Care Provider] - Diet: Regular Addtl Attending Provider Instructions: ACTIVITY RECOMMENDATIONS: SELF CARE INSTRUCTIONS AFTER THORACIC/LUMBAR FUSIONS 1. You may walk to your tolerance. It is good exercise for your legs and back. Expect some back and intermittent leg aches and pains. 2. You may perform "counter-top" level activities (make a sandwich, steffi with a project, etc.). 3. No bending or lifting of more than 10 pounds or back twisting of any nature (roll like a log when turning in bed). 4. You may ride in a car for 20-30 minutes at a time. No driving until after your first visit with your doctor. 5. Frequent changes of position and restricting sitting to 30 minutes at a time will help limit the amount of back spasms and stiffness you may experience. 6. You may discontinue the use of ambulatory aids (cane, crutches, etc.) once your strength and confidence allow. 7. You may jewelry bearing maker the shower and let water strike your incision when you arrive home at least once daily. Do not take a tub bath, sit in a hot tub or go into a swimming pool until after your first recheck in the office. SPECIAL CARE INSTRUCTIONS: VERY IMPORTANT TO READ AND REVIEW A. Your surgical incision has been closed with a cosmetic suture under the skin that will dissolve in about 6 weeks. In 14 days, you can use a pair of clean scissors and cut the suture that is left outside of the skin at the ends of your incision. 1. The small skin tapes can be removed 7 days after surgery if they have not fallen off by that point. 2. You may keep the wound open to air as much as possible to promote healing after post-op day number 5 unless told otherwise by your doctor. 3. If you think the wound looks like it is becoming infected (redness or worsening drainage) and/or you are experiencing fever, chill or worsening back pain and muscle spasms, contact the office so that we may evaluate you as soon as possible. B. Complications are uncommon, but please contact us if you have any signs or symptoms of: 1. wound infection (fever higher than 102.5 degrees F, redness, separation of wound, drainage, or increasing pain from the incision) 2. blood clots in legs (pain, swelling, redness and warmth in legs) 3. urinary tract infection (fever higher than 102.5 degrees F, burning upon urination or increased frequency of urination) 4. nerve problems (inability to walk on your toes or heels, numbness, loss of bowel or bladder control) 5. any other symptoms that concern you C. Please call the office at if you have any concerns or questions about your operation or recovery. D. No smoking! Smoking drastically decreases the chance of a solid fusion. E. Do not take any anti-inflammatory medications (Indocin, Advil, Motrin, Aspirin, Naprosyn, etc.) as these may inhibit the chance of a solid fusion. Ty carolynol is okay to take for pain. MANAGING PAIN AFTER SPINAL SURGERY 1. Narcotic medication is intended for short-term use and will be provided for surgical pain. Surgical pain usually lasts for a period of 4-6 weeks. Narcotic medication includes Percocet, Vicodin, Darvocet, Tylenol #3 or Lortab. 2. Longer-term pain is more appropriately treated with non-narcotic medication such as Tylenol ES. 3. Muscle spasm is not appropriately treated with narcotics. Muscle relaxers such as Soma, Flexeril or Skelaxin can be used along with Tylenol ES. 4. Remember that we all live with some "aches and pains". This is not unusual or uncommon after an injury or as we get older. a. Back pain is expected and may include muscle spasms for 4 to 6 weeks after surgery. The pain should gradually improve. If the pain worsens for no apparent reason, please contact the office. b. Intermittent leg pain may also be experienced and should not be concerned about unless it worsens for no apparent reason. If so, please contact the office. 5. We will provide appropriate medication within the normal guidelines of their prescribed use. We will also be very cautious and aware of potential abuse and extended duration of patients' medication needs. a. Pain medications are for your comfort and to assist with sleep and rest so that the tissue can heal. They are not provided in order to return to normal activity and should not be used through the day. To do so or worsening pain at night can result from ongoing tissue damage and development of tolerance to the prescribed medicine. 6. Please allow 2-3 days to process refills. Prescriptions will not be mailed but must be picked up at the office. FOLLOW UP VISIT: Keep your scheduled follow-up appointment. Any questions, please call the office at . Pending Studies at Discharge: No Stand-Alone Forms: My [employer], Smoking Cessation Medications and HI Order Prescriptions: New oxycodone 5 mg tablet 5 mg PO Q6H PRN (Reason: pain, severe) Qty: 30 RF: 0 tramadol 50 mg tablet 50 mg PO Q6H PRN (Reason: pain, moderate) Qty: 30 RF: 0 Continued venlafaxine 150 mg Capsule,Extended Release 24hr 150 mg PO HS RF: 0 buprenorphine-naloxone 8-2 mg Tablet, Sublingual 0.3 tab SUBLINGUAL Q4H RF: 0 pregabalin [Lyrica] 150 mg Capsule 150 mg PO TID RF: 0 oxycodone-acetaminophen [Percocet] 5-325 mg Tablet 1 tab PO Q4H PRN (Reason: Pain) RF: 0 Biofreeze (menthol) 4 % Gel 1 applic TOPICAL TID PRN (Reason: Pain) RF: 0 Discharge Orders: Discharge Order (Routine); Ordered 01/03/21 Ordered By: Ronnie Quintana Admission Data Admit Date/Time: 01/01/21 12:59 Attending Provider: Ronnie Quintana Admit Provider: Ronnie Quintana Primary Care Provider: Barbie Zayas Other Providers: Luis Alberto Rand ; Gonzalez Chou
--- NOTE | 2021-01-03 08:50 | Hospitalist Progress Note ---
Date of Service January 03, 2021 Assessment & Plan (1) Neurogenic claudication due to lumbar spinal stenosis: POD#2 L2-L3 decompression, L2-L4 fusion, L3-L5 hardware removal by Dr. Quintana tolerated procedure well EBL 250ml; BROOK drain 700ml activity and wound care orders as per ortho pain control with bowel regimen PT/OT monitor H/H for acute blood loss anemia and transfuse blood products PRN Anemia, acute bloss loss and dilutional pre op hgb 15.0, hgb 13.0 today no need for transfusion Leukcocytosis wbc 18k -- now 15.85 no s/sx of infection likely reactive monitor (2) Anxiety: Continue home medications (3) Obesity, morbid, BMI 40.0-49.9: BMI 41.9 encourage lifestyle modifications (4) DVT prophylaxis: TEDs/SCDs as per spine Ortho Pt was seen and examined in collaboration with Dr. Rand, please see addendum Thank you for this consultation. We will follow the patient with you during their hospital stay. You can reach a member of the [facility] Hospitalist Team 14/04 via the [facility] Hospitalist role in [employer]. Admission and Anticipated Discharge Date Admission Date: January 01, 2021 Supervising Physician Co-Signing Physician Notes Attending addendum: The patient was seen and examined in medical floor He is a status post L2-L3 decompression, L2-L4 fusion on 01/01/2021 Has been feeling a lot better since the procedure and has been ambulating without any problem He will be discharged home this afternoon On examination Sitting at the edge of the bed without any acute distress Hemodynamically stable Chestclear to auscultate bilaterally HeartS1-S2 regular Abdomenbenign Extremitiestrace edema bilaterally His labs and imaging studies reviewed Remains medically stable Agree with assessment and plan as outlined above by Fam Chou Subjective Patient was seen and examined in room 322. Follow-up lumbar surgery and anxiety. He is overall doing well and plan is to be discharged home today. According to nurse at bedside he did have increased output with BROOK drain; however, this have subsided this morning. He denies any fever, chills, sweats, lightheadedness, dizziness, chest pain, shortness breath, nausea, vomiting, abdominal pain. He is passing urine without difficulty although he does complain of some dysuria secondary to catheter. He also noted initial hematuria but this has since resolved. He is passing flatus. Review of Systems Review of Systems: All systems reviewed & are unremarkable except as noted in HPI & below Physical Exam Physical Exam: Gen: WD/WN, male, sitting up at bedside, NAD, A&O x3 HEENT: Normocephalic, atraumatic, conjunctivae moist, sclerae anicteric, mucous membranes moist. Lung: Clear to Auscultation bilaterally, no wheezes/rales/rhonchi Heart: Regular rate, regular rhythm, no murmurs, rubs, or gallops Abdomen: Protuberant abdomen, soft, NT, ND +BS x 4 Extremities: No edema, lumbar dressing CDI, BROOK drain with serosang drainage Skin: Warm, no rash, negative turgor. Results & Data Results & Data ([facility]) Vital Signs (Past 12 Hours) Vital Signs Temp Pulse Resp BP Pulse Ox 01/03/21 07:39 36.8 C 75 16 124/66 95 01/02/21 23:23 36.6 C 73 18 123/73 96 Laboratory Results Short CBC 01/03/21 Range/Units 06:43 WBC 15.85 H (4.8-10.8) K/uL Hgb 13.0 L (14.0-18.0) g/dL Hct 37.5 L (42-52) % Plt Count 251 (130-400) K/uL BMP 01/03/21 06:43 Sodium 141 Potassium 3.9 Chloride 109 H Carbon Dioxide 27 BUN 16 Creatinine 0.70 Glucose 113 H Calcium 8.6 Medications Administered Acetaminophen (Acetaminophen 500 Mg Tab) 1,000 mg PO Q8H PRN PRN Reason: MILD Pain Scale 1,2,3 & Pre PT Stop: 01/31/21 14:13 Last Admin: 01/02/21 17:33 Dose: 1,000 mg Documented by: [id number] Hydromorphone HCl (Hydromorphone Inj 1 Mg/Ml Syringe) 1 mg IV Q3H PRN PRN Reason: severe pain (scale 7-10) Stop: 01/15/21 14:13 Last Admin: 01/01/21 17:43 Dose: 1 mg Documented by: [id number] Admin: 01/01/21 14:33 Dose: 1 mg Documented by: [id number] Dexamethasone 8 mg/ Syringe 2 mls @ 1 mls/min IV DAILY GABI Stop: 02/01/21 08:59 Last Admin: 01/03/21 08:30 Dose: Not Given Documented by: [id number] Admin: 01/02/21 13:11 Dose: 1 mls/min Documented by: [id number] Lorazepam (Lorazepam 0.5 Mg Tab) 0.5 mg PO Q8H PRN PRN Reason: Sedation/Anxiety Stop: 01/31/21 14:13 Last Admin: 01/01/21 14:32 Dose: 0.5 mg Documented by: [id number] Oxycodone HCl (Oxycodone Hcl Ir 5 Mg Tab (Immediate Release)) 5 - 10 mg PO Q4H PRN PRN Reason: Moderate-Severe Pain & Pre PT Stop: 01/15/21 14:13 Last Admin: 01/03/21 08:13 Dose: 10 mg Documented by: [id number] Admin: 01/03/21 02:37 Dose: 10 mg Documented by: [id number] Admin: 01/02/21 23:27 Dose: 10 mg Documented by: [id number] Admin: 01/02/21 19:24 Dose: 10 mg Documented by: [id number] Admin: 01/02/21 13:11 Dose: 10 mg Documented by: [id number] Admin: 01/02/21 08:14 Dose: 10 mg Documented by: [id number] Admin: 01/02/21 00:58 Dose: 10 mg Documented by: [id number] Admin: 01/01/21 20:56 Dose: 10 mg Documented by: [id number] Admin: 01/01/21 17:01 Dose: 5 mg Documented by: [id number] Admin: 01/01/21 15:13 Dose: 5 mg Documented by: [id number] Pregabalin (Pregabalin 150 Mg Cap) 150 mg PO TID GABI Stop: 01/31/21 14:13 Last Admin: 01/03/21 08:13 Dose: 150 mg Documented by: [id number] Admin: 01/02/21 20:37 Dose: 150 mg Documented by: [id number] Admin: 01/02/21 15:37 Dose: 150 mg Documented by: [id number] Admin: 01/02/21 08:14 Dose: 150 mg Documented by: [id number] Admin: 01/01/21 20:56 Dose: 150 mg Documented by: [id number] Admin: 01/01/21 14:53 Dose: 150 mg Documented by: [id number] Senna/Docusate Sodium (Docusate Sodium/Senna 50/8.6mg Tab) 2 tab PO HS GABI Stop: 01/31/21 20:59 Last Admin: 01/02/21 20:36 Dose: Not Given Documented by: [id number] Admin: 01/01/21 20:57 Dose: 2 tab Documented by: [id number] Tramadol HCl (Tramadol Hcl 50 Mg Tablet) 50 - 100 mg PO Q4H PRN PRN Reason: Moderate-Severe Pain & Pre PT Stop: 01/31/21 14:13 Last Admin: 01/03/21 06:27 Dose: 100 mg Documented by: [id number] Admin: 01/02/21 21:00 Dose: 100 mg Documented by: [id number] Admin: 01/02/21 15:37 Dose: 100 mg Documented by: [id number] Admin: 01/02/21 04:16 Dose: 50 mg Documented by: [id number] Admin: 01/01/21 19:32 Dose: 50 mg Documented by: [id number] Venlafaxine HCl (Venlafaxine Hcl Xr 150 Mg Capxr) 150 mg PO [facility] Stop: 01/31/21 20:59 Last Admin: 01/02/21 20:37 Dose: 150 mg Documented by: [id number] Admin: 01/01/21 20:57 Dose: 150 mg Documented by: [id number] Discontinued Medications Acetaminophen (Acetaminophen 500 Mg Tab) 1,000 mg PO PREOP GABI Stop: 01/01/21 18:00 Last Admin: 01/01/21 09:50 Dose: 1,000 mg Documented by: [id number] Bacitracin (Bacitracin Inj 50,000 Unit Vial) Confirm Administered Dose 50,000 units .ROUTE .STK-MED ONE Stop: 01/01/21 10:36 Last Admin: 01/01/21 12:35 Dose: 50,000 units Documented by: [id number] Bupivacaine HCl/Epinephrine Bitart (Bupivacaine/Epinephrine 0.5% Mpf 1:200,000 30 Ml Vial) Confirm Administered Dose 30 ml .ROUTE .STK-MED ONE Stop: 01/01/21 10:35 Last Admin: 01/01/21 12:22 Dose: 30 ml Documented by: [id number] Celecoxib (Celebrex 200 Mg Cap) 200 mg PO PREOP GABI Stop: 01/01/21 18:00 Last Admin: 01/01/21 09:50 Dose: 200 mg Documented by: [id number] Fentanyl Citrate (Fentanyl Citrate 100 Mcg/2 Ml Vial) 50 mcg IV Q5M PRN PRN Reason: PACU Use Only-Pain Stop: 01/01/21 18:37 Last Admin: 01/01/21 13:40 Dose: 50 mcg Documented by: [id number] Admin: 01/01/21 13:35 Dose: 50 mcg Documented by: [id number] Admin: 01/01/21 13:30 Dose: 50 mcg Documented by: [id number] Admin: 01/01/21 13:25 Dose: 50 mcg Documented by: [id number] Gabapentin (Gabapentin 900 Mg Dose) 900 mg PO PREOP GABI Stop: 01/01/21 18:00 Last Admin: 01/01/21 09:49 Dose: 900 mg Documented by: [id number] Cefazolin Sodium (Ancef 3000mg) 72.5 mls @ 130 mls/hr IV PREOP GABI; Protocol Stop: 01/01/21 18:00 Last Infusion: 01/01/21 14:35 Dose: 0 mls/hr Documented by: [id number] Admin: 01/01/21 10:52 Dose: 130 mls/hr Documented by: [id number] Lactated Ringer's (Lr) 1,000 mls @ 15 mls/hr IV .Q24H GABI Stop: 01/02/21 05:59 Last Infusion: 01/01/21 10:52 Dose: 0 mls/hr Documented by: [id number] Admin: 01/01/21 09:49 Dose: 15 mls/hr Documented by: [id number] Acetaminophen (Ofirmev) 1,000 mg in 100 mls @ 400 mls/hr IV Q8H PRN PRN Reason: MILD Pain Rating 1,2,3 Stop: 01/02/21 14:13 Last Infusion: 01/02/21 06:33 Dose: 0 mls/hr Documented by: [id number] Admin: 01/02/21 06:06 Dose: 400 mls/hr Documented by: [id number] Infusion: 01/01/21 15:28 Dose: 0 mls/hr Documented by: [id number] Admin: 01/01/21 15:13 Dose: 400 mls/hr Documented by: [id number] Cefazolin Sodium (Ancef 2000mg) 2,000 mg in 15 mls @ 3.75 mls/min IV Q8H GABI; Protocol Stop: 01/02/21 02:03 Last Admin: 01/02/21 00:57 Dose: 3.75 mls/min Documented by: [id number] Admin: 01/01/21 17:42 Dose: 3.75 mls/min Documented by: [id number] Lactated Ringer's (Lr) 1,000 mls @ 150 mls/hr IV .Q6H40M GABI Stop: 01/31/21 14:59 Last Infusion: 01/02/21 02:41 Dose: 0 mls/hr Documented by: [id number] Admin: 01/01/21 20:57 Dose: 150 mls/hr Documented by: [id number] Infusion: 01/01/21 20:57 Dose: 150 mls/hr Documented by: [id number] Admin: 01/01/21 14:34 Dose: 150 mls/hr Documented by: [id number] Ketorolac Tromethamine (Ketorolac 30 Mg/Ml Vial) 30 mg IV Q6 GABI Stop: 01/02/21 12:01 Last Admin: 01/02/21 13:12 Dose: 30 mg Documented by: [id number] Admin: 01/02/21 05:58 Dose: 30 mg Documented by: [id number] Admin: 01/02/21 00:57 Dose: 30 mg Documented by: [id number] Admin: 01/01/21 17:41 Dose: 30 mg Documented by: [id number] Miscellaneous ( Floseal Hemostatic Matrix 10ml) 20 ml TOP ONCE ONE Stop: 01/01/21 11:46 Last Admin: 01/01/21 12:42 Dose: 16 ml Documented by: [id number] Polyethylene Glycol (Polyethylene (Miralax) 17 Gm Pack) 17 gm PO Q6 GABI Stop: 02/01/21 05:59 Last Admin: 01/02/21 13:13 Dose: Not Given Documented by: [id number] Admin: 01/02/21 05:57 Dose: 17 gm Documented by: [id number]
== END 2021-01-03 14:00 | disposition home or self-care (01) | DRG 454 ==
LOC: ASU 09:29 → 3E 12:59

== ENCOUNTER 2022-06-05 07:21 | Inpatient (IN) ==
--- NOTE | 2022-03-27 15:29 | PAT Medication Instructions ---
Medication Instructions Date of Service March 27, 2022 Home Medications buprenorphine 8 mg-naloxone 2 mg sublingual tablet 0.3 tab SUBLINGUAL Q4H pregabalin 150 mg capsule (Lyrica) 150 mg PO TID venlafaxine 150 mg capsule,extended release 24 hr 150 mg PO HS menthol 4 % topical gel (Biofreeze (menthol)) 1 applic TOPICAL TID PRN Continue as directed buprenorphine 8 mg-naloxone 2 mg sublingual tablet 0.3 tab SUBLINGUAL Q4H STOP taking 24 hours before surgery menthol 4 % topical gel (Biofreeze (menthol)) 1 applic TOPICAL TID PRN Take morning of surgery With a small sip of water, OTHERWISE NOTHING TO EAT OR DRINK AFTER MIDNIGHT: pregabalin 150 mg capsule (Lyrica) 150 mg PO TID Take evening before surgery pregabalin 150 mg capsule (Lyrica) 150 mg PO TID venlafaxine 150 mg capsule,extended release 24 hr 150 mg PO HS Other Notes If you have any questions please call us at [phone] or [phone] or [phone] or [phone]
--- NOTE | 2022-04-01 13:28 | Anesthesiology Consultation ---
Date of Service April 01, 2022 Assessment & Plan (1) Encounter for pre-operative examination: - COVID screening: Per assessment on 04/01: No known COVID-19 positive contacts or current COVID-19 related symptoms. Travel screen negative. Patient vaccinat ed. Surgeon arranging preop COVID testing. Awaiting results. - Hx Glidescope intubation: P L2-L4 decompression fusion 01/01/21: Grade 1 view, Glidescope #4 ETT 8.0. - Buprenorphine-Naloxone instructions: patient advised to continue perioperatively Chart Review Chart Review: Acceptable Risk for Surgery and Patient seen in Pre Admission Testing Teaching & Discussion Pre-Anesthesia Teaching/Discussion Notes: Instructed NPO after midnight before surgery,except medications with 15 cc of water. Medication instructions provided according to the PAT guidelines. History Surgery Operation Date: 05/03/22 07:45 Proposed Procedures p L1-L2 and L5-S1 Decompression, T12-S1 Fusion, L2-L4 Hardware Removal - Ronnie Quintana, Height/Weight Height: 5 ft 9 in Weight: 135.4 kg Allergies Allergy/AdvReac Type Severity Reaction Status Date / Time Iodinated Contrast Media Allergy Intermediate Itching, Verified 01/01/21 09:45 swelling iodine Allergy Intermediate Itching, Verified 01/01/21 09:45 swelling shellfish derived Allergy Intermediate Swelling Verified 01/01/21 09:45 Medications Home Medications Medication Instructions Recorded Confirmed Last Taken buprenorphine 8 mg-naloxone 2 mg 0.3 tab SUBLINGUAL Q4H 11/10/20 03/26/22 Unknown sublingual tablet pregabalin 150 mg capsule (Lyrica) 150 mg PO TID 11/10/20 03/26/22 01/01/21 04:00 venlafaxine 150 mg 150 mg PO HS 11/10/20 03/26/22 12/31/20 22:00 capsule,extended release 24 hr menthol 4 % topical gel (Biofreeze 1 applic TOPICAL TID PRN 01/01/21 03/26/22 Unknown (menthol)) Past Medical History Medical History Anxiety Chronic back pain Degenerative disc disease Depression History of COVID-19 Covid positive 11/2020 (tested for preop, was asymptomatic) Exercise / Class Metabolic Activity II 4-5 Yardwork/Stairs/Walk up hill (one FS (no CP, no SOB)) Past Family History Family History Other No pertinent family history Past Surgical History Surgical History Fusion of spine L2-L4 decompression fusion 01/01/21: Grade 1 view, Glidescope #4 ETT 8.0. History of arthroscopy Right knee x multiple History of eye surgery Right retinal repair History of sinus surgery History of tonsillectomy Past Anesthesia History Difficult Airway (L2-L4 decompression fusion 01/01/21: Grade 1 view, Glidescope #4 ETT 8.0.) and No Family Hx of Anesthesia Complications History of PONV No Hx of PONV and Hx of Motion Sickness Social History Smoking Status: Current every day smoker tobacco type: cigarettes Smoking cigarettes per day: 1 pk/day x 30 years Do You Dip or Chew Tobacco: Yes (Occasional- advised none DOS) Hx Alcohol Use: No Hx Substance Use: No substance use type: does not use Review of Systems Patient denies chest pain, shortness of breath, dyspnea on exertion, fever, chills, cough, wheezing, palpitations. Physical Exam Vital Signs VITALS BP 111/71 P 74 TEMP 98.1 SP02 95%RA RESP 16 PHYSICAL Full cervical extension range of motion. Full TMJ range of motion. TMD 3 finger breaths Mallampati Score 1 Dentition: "soft" teeth/poor dentition, several missing teeth Lungs: mils lung base inspiratory wheezes Cardiac: regular rate and rhythm, no murmurs noted Spine: normal Carotid arteries: negative bruit Extremities: no edema Thick neck Lab Results Anesthesia Preop Results Results Anesthesia Widget: WBC 8.65 K/ul (4.8-10.8) 04/01/22 Hgb 14.3 g/dl (14.0-18.0) 04/01/22 Hct 42.4 % (40.1-51.0) 04/01/22 Plt 206 K/uL (130-400) 04/01/22 Na 139 mmol/L (136-145) 04/01/22 K 4.2 mmol/L (3.5-5.1) 04/01/22 Cl 107 mmol/L (98-107) 04/01/22 CO2 27 mmol/L (21-32) 04/01/22 BUN 16 mg/dl (6-23) 04/01/22 Creat 0.79 mg/dl (0.6-1.4) 04/01/22 Glucose Level 97 mg/dl (70-99(Fasting)) 04/01/22 PT 10.7 Seconds (9.0-12.0) 04/01/22 PTT 27.2 Seconds (21.0-31.0) 04/01/22 INR 1.0 (0.9-1.1) 04/01/22 Urine Color Dark Yellow 04/01/22 Urine Appearance Clear (Clear) 04/01/22 Urine pH 5.5 (4.5-7.5) 04/01/22 Urine Specific Stebbins 1.029 (1.000-1.030) 04/01/22 Urine Protein Negative (Negative) 04/01/22 Urine Glucose (UA) Negative (Negative) 04/01/22 Urine Ketones Negative (Negative) 04/01/22 Urine Blood Negative (Negative) 04/01/22 Urine Nitrite Negative (Negative) 04/01/22 Urine Bilirubin Negative (Negative) 04/01/22 Urine Urobilinogen Negative (Negative) 04/01/22 Urine Leukocyte Esterase Negative (Negative) 04/01/22 Blood Type O Positive 04/01/22 Antibody Screen NEGATIVE 04/01/22 Testing Electrocardiogram Date: 04/01/22 Findings: + NSR @ (63) Chest X-Ray Date: 04/01/22 Findings: + NAD Stress Test Date: 09/24/17 Stress EKG was negative for myocardial ischemia 1 1% MPHR. Moderate level of exercise achieved. No chest pain with exercise. 12.8 METS.
[~2022-06-05 07:21] MED LIST changes: -SUGAMMADEX SODIUM 200 MG/2 ML VIAL IV ONE
[2022-06-05] MEDS: GABAPENTIN 900 MG DOSE PO SCH (08:00)
[2022-06-05] MEDS: ACETAMINOPHEN 500 MG TAB PO SCH (08:00)
[2022-06-05] MEDS: CeleBREX 200 MG CAP PO SCH (08:01)
[2022-06-05] MEDS ORDERED: ROCURONIUM BROMIDE 10 MG/ML 5 ML VIAL IV ONE ×2 (08:35→11:34)
[2022-06-05] MEDS ORDERED: PROPOFOL IV EMULSION 10 MG/ML 20 ML VIAL IV ONE (08:35)
[2022-06-05] MEDS ORDERED: LIDOCAINE 2% 20 MG/ML 5 ML SYR IV ONE (08:35)
[2022-06-05] MEDS ORDERED: MIDAZOLAM HCL 1 MG/ML 2ML VIAL ONE (08:35)
[2022-06-05] MEDS ORDERED: fentaNYL citrate 100 MCG/2 ML VIAL ONE (08:35)
[2022-06-05] MEDS ORDERED: fentaNYL citrate 100 MCG/2 ML VIAL IV PRN (08:50)
[2022-06-05] MEDS ORDERED: ONDANSETRON INJ 2 MG/ML 2 ML VIAL IV PRN ×2 (08:50→14:06)
[2022-06-05] MEDS ORDERED: ATROPINE SULFATE 0.1 MG/ML 10ML SYR IV PRN (08:50)
[2022-06-05] MEDS ORDERED: ePHEDrine sulfate 50 MG/ML AMP IV PRN (08:50)
[2022-06-05] MEDS ORDERED: HYDROmorphone INJ 2 MG/ML SYR/VIAL IV PRN (08:50)
--- NOTE | 2022-06-05 08:59 | History & Physical Bridge Note ---
Date of Service June 05, 2022 History & Physical Bridge Note I have examined the patient, reviewed the History & Physical and in the interval since the performance of the History & Physical I have noted the following changes of clinical significance: no changes noted
--- NOTE | 2022-06-05 09:00 | History & Physical Report ---
Date of Service June 05, 2022 Assessment & Plan (1) Neurogenic claudication due to lumbar spinal stenosis: Plan L2 and L5-S1 decompression, T12-S1 fusion, L2-L4 hardware removal History of Present Illness Chief Complaint: Back and leg pain Primary Care Provider: Barbie Zayas MD This is a 51-year-old male presents with chronic persistent back and leg pain. During the course of nonoperative care is here for surgical invention. Allergies Allergy/AdvReac Type Severity Reaction Status Date / Time Iodinated Contrast Media Allergy Intermediate Itching, Verified 06/05/22 07:51 swelling iodine Allergy Intermediate Itching, Verified 06/05/22 07:51 swelling shellfish derived Allergy Intermediate Swelling Verified 06/05/22 07:51 Home Medications Medication Instructions Recorded Confirmed Type buprenorphine 8 mg-naloxone 2 mg 0.3 tab sublingual Q4H 11/10/20 06/05/22 History sublingual tablet pregabalin 150 mg capsule (Lyrica) 150 mg PO TID 11/10/20 06/05/22 History venlafaxine 150 mg 150 mg PO QAM 11/10/20 06/05/22 History capsule,extended release 24 hr menthol 4 % topical gel (Biofreeze 1 applic topical TID PRN Pain 01/01/21 06/05/22 History (menthol)) Past Med/Surg History Medical History Anxiety Chronic back pain Degenerative disc disease Depression History of COVID-19 Covid positive 11/2020 (tested for preop, was asymptomatic) Surgical History Fusion of spine L2-L4 decompression fusion 01/01/21: Grade 1 view, Glidescope #4 ETT 8.0. History of arthroscopy Right knee x multiple History of esophagogastroduodenoscopy (EGD) History of eye surgery Right retinal repair History of sinus surgery History of tonsillectomy S/P epidural steroid injection lumbar S/P lumbar spinal fusion lumbar fusions (has had 3 prior to 2020, beginning in 2009) Family History Other No family history of adverse response to anesthesia No pertinent family history Social History Smoking Status: Current every day smoker Cigarettes Per Day: 1 pk/day x 30 years; Second Hand Exposure: No; Do You Dip or Chew Tobacco: Yes (Occasional- advised none DOS); Tobacco Cessation Education Requested by Patient: No Hx Alcohol Use: No Hx Substance Use: No Preferred Language: Slovenian Communication Ability: Effective 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
[2022-06-05] MEDS ORDERED: BUPIVACAINE/EPINEPHRINE 0.25% 1:200,000 30 ML VIAL ONE (09:23)
[2022-06-05] MEDS ORDERED: ceFAZolin 330 MG/ML 1 GM VIAL ONE (09:23)
[2022-06-05] MEDS ORDERED: KETAMINE 50 MG/5 ML SYRINGE ONE ×2 (09:30→10:50)
[2022-06-05] MEDS ORDERED: DexMEDEtomidine HCL IV 100 MCG/ML VIAL IV ONE (09:33)
[2022-06-05] MEDS ORDERED: ONDANSETRON INJ 2 MG/ML 2 ML VIAL ONE ×2 (10:24→11:42)
[2022-06-05] MEDS ORDERED: DEXAMETHASONE SOD INJ 4 MG/ML VIAL ONE (10:24)
[2022-06-05] MEDS ORDERED: FLOSEAL HEMOSTATIC MATRIX 10ML TOP ONE (11:40)
[2022-06-05] MEDS ORDERED: NEOSTIGMINE METHYLSULFATE 1 MG/ML 10ML VIAL ONE (11:42)
[2022-06-05] MEDS ORDERED: GLYCOPYRROLATE 0.2 MG/ML VIAL ONE (11:42)
--- NOTE | 2022-06-05 12:02 | Operative Report ---
Post Operative Report Pre & Post Diagnosis Operation Date: 06/05/22 09:05 Pre-Op Diagnosis: Lumbar spinal stenosis with neurogenic claudication Postop diagnosis: Same I identified the patient and participated in the time-out.: Yes Procedure Operation Date: 06/05/22 09:05 Actual Procedures #1 removal of posterior instrumentation L2-L3 L3-4. #2 exploration of fusion L2-L3 L3-4. #3 decompression with bilateral medial facetectomies and foraminotomies T12-L1 L1-L2. #4 posterior spinal fusion T12-L1 2. #5 placement posterior instrumentation T12-L4. #6 interbody fusion L1-L2. #7 placement of Spira 10 x 26 mm cage at L1-L2. #8 placement locally harvested morselized autograft in the posterior gutters. #9 placement of I factor combined with V toss interbody space and posterior gutters. Surgeon Ronnie Quintana, DO [employer] Helper Nay Mcknight Estimated Blood Loss 250 Findings See Below The patient is 5 foot 9 weighing over 134 kg with a BMI in excess of 43. The patient's body habitus did contribute to significant technical difficulty required deepest retractors and longer instruments in order to perform his procedure. This had at least 50% increased operative time. Specimens None Indications This is a 51-year-old male who presents above-mentioned diagnosis after failed course of nonoperative care is here for surgical invention. We did had a lengthy discussion preoperatively regarding addressing the L5-S1 level. I did not appreciate gross vacuum phenomenon instability we would not address this at this time. He understood and agreed. Description of Procedure Patient was met with identified informed consent obtained. Patient was then taken to the operative suite underwent a patient placed in a prone position on the Nehemiah table top of the Manohar frame. All bony prominences well-padded eyes inspected to ensure no external pressure placed upon the. This point the lumbar spine was prepped and draped in a sterile fashion. Sharp dissection with the assistance pericardial performed down to and exposing the lamina and transverse processes of T12-L1 and instrumentation at L2-L3-L4 bilaterally. Then proceeded move the hardware bilaterally explore the fusion mass noting it to be mature and intact. Informed complete laminectomy of L1 partial laminectomy of T12 including bilateral medial facetectomies and foraminotomies addressing severe spinal stenosis. Pedicle screws were then placed in T12-L1 L2-L3-L4 bilaterally with assistance of fluoroscopy and appropriate sized sharmila contoured and placed. By way of a transfemoral approach on the right complete discectomy of L1-L2 was performed endplates curetted to subcortically bone and a 10 x 26 mm spiral cage filled with I factor tapped in position. The rods and locked into final position bilaterally. The transverse processes of T12 L1-L2 burred to subcortical bleeding bone. I factor combined with V toss and locally harvested morselized autograft was placed in the posterior gutters. 15 round BROOK drain inserted. The incision was then closed with 1 Vicryl the fascia 2-0 Vicryl subcutaneously and 4 Monocryl for final skin closure. Steri-Strip sterile dressings placed. Patient waken taken PACU in stable condition. Please note spinal cord monitoring visualized at the procedure no changes noted. Lastly Nay Mcknight was present at the entire procedure involved the patient positioning complex portions of the surgery and final skin closure. I attest to the content of the Intraoperative Record and any orders documented therein. Any exceptions are noted below.
--- NOTE | 2022-06-05 12:19 | Fluoroscopy Report ---
FL spine 1V any level CLINICAL HISTORY: PA VIEW FOR NEEDLE COUNT COMPARISON STUDY: Fluoroscopic images of the spine performed earlier today. FLUOROSCOPY TIME: 1 second. FLUOROSCOPIC IMAGES: 1 FINDINGS: No unexpected radiopaque foreign bodies are identified. Multilevel discectomy, posterior de compression and fusion are partially imaged. IMPRESSION: No unexpected radiopaque foreign bodies. ACT 112: Negative or not required by law. Electronically signed by: Danny Craven M.D. 06/05/2022 12:17 PM
[2022-06-05] MEDS ORDERED: SUGAMMADEX SODIUM 200 MG/2 ML VIAL IV ONE (12:30)
--- NOTE | 2022-06-05 13:00 | Fluoroscopy Report ---
FL lumbar spine 2-3V CLINICAL HISTORY: Hardware removal. Decompression and fusion. COMPARISON STUDY: Lumbar spine radiographs December 06, 2011. Fluoroscopic images of the lumbar spine A [facility] 2020. FLUOROSCOPY TIME: 21 seconds. FLUOROSCOPIC IMAGES: 3 FINDINGS: L2-L4 hardware removal. Previous L4-L5 discectomy is present. Interval L1-L2 discectomies i nterbody spacer placement. There is a previous L2-L3 discectomy. Posterior decompression is noted. Bi lateral pedicle screw fusion from T2 through L4 is noted. IMPRESSION: Fluoroscopy provided during hardware removal, L1-L2 discectomy, posterior decompression and T12-L4 bilateral pedicle screw fusion. ACT 112: Negative or not required by law. Electronically signed by: Danny Craven M.D. 06/05/2022 12:58 PM
--- NOTE | 2022-06-05 13:15 | Anesthesiology Progress Note ---
Date of Service June 05, 2022 Anesthesia Post Procedure Vital Signs Vital Signs: Temp Pulse Pulse Resp BP Pulse Ox O2 Del Method 06/05/22 13:10 60 18 107/67 93 Nasal Cannula 06/05/22 12:50 63 17 101/60 96 Oxymask 06/05/22 12:40 63 16 101/62 94 Oxymask 06/05/22 12:30 61 14 92/61 L 95 Oxymask 06/05/22 13:00 59 L 15 98/63 L 93 Oxymask 06/05/22 12:25 62 12 99/63 L 96 Oxymask 06/05/22 12:19 97.2 F L 63 10 L 102/63 92 Oxymask 06/05/22 07:53 97.7 F 62 20 119/77 96 Room Air O2 Flow Rate 06/05/22 13:10 4 06/05/22 12:50 6 06/05/22 12:40 6 06/05/22 12:30 6 06/05/22 13:00 4 06/05/22 12:25 6 06/05/22 12:19 6 06/05/22 07:53 Pain Intensity Left Leg: Pain Intensity: 4 Transfer of Care Handoff Completed per policy Notes Mental Status: alert / awake / arousable and participated in evaluation Patient Amnestic to Procedure: Yes Nausea / Vomiting: adequately controlled Pain: adequately controlled Airway Patency, RR, SpO2: stable & adequate BP & HR: stable & adequate Hydration State: stable & adequate Anesthetic Complications: no major complications apparent and Pt Satisfied with anesthetic care
[2022-06-05] MEDS ORDERED: METOCLOPRAMIDE HCL INJ 5 MG/ML 2 ML VIAL IV PRN (14:06)
[2022-06-05] MEDS ORDERED: HYDROmorphone INJ 0.5 MG/0.5 ML SYR IV PRN (14:06)
[2022-06-05] MEDS ORDERED: bisacodyL 10 MG SUPP PR PRN (14:06)
[2022-06-05] MEDS ORDERED: ACETAMINOPHEN 1,000 MG/100 ML VIAL IV PRN (14:06)
[2022-06-05] MEDS ORDERED: LORazepam 0.5 MG TAB PO PRN (14:06)
[2022-06-05] MEDS ORDERED: ALUMINUM/MAGNESIUM SUSP 30 ML UDC PO PRN (14:06)
[2022-06-05] MEDS ORDERED: HYDROmorphone INJ 1 MG/ML SYRINGE IV PRN (14:06)
[2022-06-05] MEDS ORDERED: MAGNESIUM HYDROXIDE SUSP 30 ML UDC PO PRN (14:06)
[2022-06-05] MEDS ORDERED: hydrOXYzine HCl 25 MG TAB PO PRN (14:06)
[2022-06-05] MEDS ORDERED: traMADol HCL 50 MG TABLET PO PRN (14:06)
[2022-06-05] MEDS ORDERED: NALOXONE HCL 0.4 MG/1 ML VIAL/CARP IV PRN (14:06)
[2022-06-05] MEDS ORDERED: PROMETHAZINE HCL 12.5 MG in SODIUM CHLORIDE 0.9% 50 ML IV PRN (14:06)
[2022-06-05] MEDS ORDERED: SOD PHOSPHATE/SOD BIPHOSPHATE ENEMA 132 ML BTL PR PRN (14:06)
[2022-06-05] MEDS ORDERED: diphenhydrAMINE Capsule 25 MG CAP PO PRN (14:06)
[2022-06-05] MEDS ORDERED: ONDANSETRON 4 MG OD TAB PO PRN (14:06)
[2022-06-05] MEDS ORDERED: ACETAMINOPHEN 500 MG TAB PO PRN (14:06)
[2022-06-05] MEDS ORDERED: LORazepam 0.5 MG in SYRINGE 0.25 ML IV PRN (14:06)
[2022-06-05] MEDS ORDERED: FAMOTIDINE 20 MG TAB PO PRN (14:06)
[2022-06-05] MEDS: LACTATED RINGER'S 1,000 ML IV SCH (15:28)
[2022-06-05] MEDS: PREGABALIN 150 MG CAP PO SCH ×2 (15:32→20:56)
[2022-06-05] MEDS: KETOROLAC 30 MG/ML VIAL IV SCH ×2 (15:32→19:58)
--- NOTE | 2022-06-05 15:41 | Consultation ---
Date of Consultation June 05, 2022 Assessment & Plan (1) Neurogenic claudication due to lumbar spinal stenosis: (2) Status post lumbar surgery: (3) Chronic back pain: Post op day# 0 S/P Removal hardware L2-L4, decompression and fusion T12-L2 by Dr Quintana EBL#[id number] -wound management per ortho -PT/OT as appropriate -DVT prophylaxis per ortho -incentive spirometry -monitor H&H for acute blood loss anemia; pre-op Hgb: 14 -ortho spine continued home Suboxone and Lyrica and consulted pain management (4) Anxiety: -Continue home venlafaxine (5) Obesity, morbid, BMI 40.0-49.9: BMI: 43.7 -Consider lifestyle modifications (6) DVT prophylaxis: -SCDs per ortho spine Disposition per primary team Follows with Dr Barbie Zayas in [place] for routine care Pt was seen and care coordinated with Dr Rand. See addendum Thank you for this consultation. We will follow the patient with you during their hospital stay. You can reach a member of [facility]04 via [facility] Supervising Physician Co-Signing Physician Notes Patient is a 51-year-old male with history of mood disorder, morbid obesity and other medical problems was consulted for postop medical management after having lumbar surgery for lumbar spinal stenosis with neurogenic claudication by Dr. Quintana. Patient is doing well postoperatively. He reports having significant pain at his surgical site but otherwise denies any chest pain, shortness of breath, dizziness, nausea, abdominal pain. On exam patient is morbidly obese, no apparent distress, normocephalic atraumatic, EOMI, normal breath sounds, clear to auscultation, S1-S2, no murmur, no pedal edema, abdomen soft, nontender, normal bowel sounds, Back: Surgical site in dressing,+ drain, alert, awake, oriented, grossly no focal deficits. Postoperative state. Monitor for postoperative anemia, continue incentive spirometer. PT OT when appropriate. Bowel regimen to prevent constipation. Wound care, DVT prophylaxis as per primary team. Pain management consulted as well. Continue venlafaxine for mood disorder. I personally reviewed the record. Patient is interviewed and examined at bedside. Patient's care is coordinated with Zoila Martinez PA-C. Please refer to the documentation above for details of patient's presentation and for discussion of other issues. History of Present Illness Requesting Physician: Dr Quintana Reason for Consultation: Post op medical management Attending Physician: Ronnie Quintana DO History of Present Illness Patient is 51 y/o M with PMH chronic back pain, prior lumbar surgery, anxiety, obesity seen in medical consultation s/p removal hardware L2-L4, decompression and fusion T12-L2 today by Dr Quintana. Post op complaining of back pain at site of surgery rates 9/10. Denies nausea, vomiting. Drinking water without difficulty. Last BM yesterday. Has Garcia cath in place. Denies fever/chills, diaphoresis, ROSA, dizziness, CP, SOB, cough, sore throat, rhinorrhea, abdominal pain, paresthesias, extremity weakness, extremity edema or pain, rashes, urinary symptoms. Allergies Allergy/AdvReac Type Severity Reaction Status Date / Time Iodinated Contrast Media Allergy Intermediate Itching, Verified 06/05/22 07:51 swelling iodine Allergy Intermediate Itching, Verified 06/05/22 07:51 swelling shellfish derived Allergy Intermediate Swelling Verified 06/05/22 07:51 Home Medications Medication Instructions Recorded Confirmed Type buprenorphine 8 mg-naloxone 2 mg 1 tab sublingual BID 11/10/20 06/05/22 History sublingual tablet pregabalin 150 mg capsule (Lyrica) 150 mg PO QID 11/10/20 06/05/22 History menthol 4 % topical gel (Biofreeze 1 applic topical TID PRN Pain 01/01/21 06/05/22 History (menthol)) venlafaxine 225 mg tablet,extended 225 mg PO DAILY 06/05/22 06/05/22 History release 24 hr Patient History Medical History (Updated 06/05/22 @ 15:46 by Zoila Martinez PA-C) Anxiety Chronic back pain Degenerative disc disease Depression History of COVID-19 Covid positive 11/2020 (tested for preop, was asymptomatic) Surgical History (Updated 06/05/22 @ 15:46 by Zoila Martinez PA-C) Fusion of spine L2-L4 decompression fusion 01/01/21: Grade 1 view, Glidescope #4 ETT 8.0. History of arthroscopy Right knee x multiple History of esophagogastroduodenoscopy (EGD) History of eye surgery Right retinal repair History of sinus surgery History of tonsillectomy S/P epidural steroid injection lumbar S/P lumbar spinal fusion lumbar fusions (has had 3 prior to 2020, beginning in 2009) Family History Other No family history of adverse response to anesthesia No pertinent family history Social History Smoking Status: Current every day smoker Cigarettes Per Day: 1 pk/day x 30 years; Second Hand Exposure: No; Do You Dip or Chew Tobacco: Yes (Occasional- advised none DOS); Tobacco Cessation Education Requested by Patient: No Hx Alcohol Use: No Hx Substance Use: No Preferred Language: [place] Communication Ability: Effective Permastone Installer Required: No Beliefs That Will Affect Care: None marital status: Single Current Living Situation: Parent Current Living Situation Comment: lives with mother Other Information That Helps Us Care for You: No Feels Safe at Home: Yes Safety Concerns: Feels Safe At This Time Assistive Devices: Glasses Review of Systems Review of Systems: All systems reviewed & are unremarkable except as noted in HPI & below Physical Exam Physical Exam: General: no distress, obese Head: normocephalic, atraumatic Eyes: conjunctiva non-injected, anicteric ENT: normal inspection external ears, nose, mucous membranes moist Neck: supple, trachea midline Lungs: clear, no respiratory distress, no wheezing/rhonchi/rales CV: RRR, no murmur, no pretibial edema Abd: normal BS, soft, non-tender Back: +BROOK drain in place with serosanguineous drainage Ext: no cyanosis, no calf tenderness; able to flex and extend bilateral feet Neuro: A&O x 3, no focal deficits noted, normal affect Skin: warm, dry Results & Data ([facility]) Vital Signs (Past 12 Hours) Vital Signs Temp Pulse Pulse Resp BP Pulse Ox O2 Del Method 06/05/22 15:05 Nasal Cannula 06/05/22 15:17 36.5 C 69 18 113/71 95 Nasal Cannula 06/05/22 14:46 36.9 C 68 16 97/59 L 94 Nasal Cannula 06/05/22 14:30 62 16 103/64 94 Nasal Cannula 06/05/22 14:15 59 L 16 113/65 94 Nasal Cannula 06/05/22 14:00 63 20 117/68 93 Nasal Cannula 06/05/22 13:45 55 L 14 94/73 L 92 Nasal Cannula 06/05/22 13:50 60 16 108/61 93 Nasal Cannula 06/05/22 13:40 57 L 14 103/71 92 Nasal Cannula 06/05/22 13:30 65 12 102/67 94 Nasal Cannula 06/05/22 13:20 36.5 C 58 L 14 96/64 L 94 Nasal Cannula 06/05/22 13:10 60 18 107/67 93 Nasal Cannula 06/05/22 12:50 63 17 101/60 96 Oxymask 06/05/22 12:40 63 16 101/62 94 Oxymask 06/05/22 12:30 61 14 92/61 L 95 Oxymask 06/05/22 13:00 59 L 15 98/63 L 93 Oxymask 06/05/22 12:25 62 12 99/63 L 96 Oxymask 06/05/22 12:19 36.2 C L 63 10 L 102/63 92 Oxymask 06/05/22 07:53 36.5 C 62 20 119/77 96 Room Air O2 Flow Rate 06/05/22 15:05 2 06/05/22 15:17 2 06/05/22 14:46 2 06/05/22 14:30 2 06/05/22 14:15 2 06/05/22 14:00 2 06/05/22 13:45 2 06/05/22 13:50 2 06/05/22 13:40 2 06/05/22 13:30 2 06/05/22 13:20 4 06/05/22 13:10 4 06/05/22 12:50 6 06/05/22 12:40 6 06/05/22 12:30 6 06/05/22 13:00 4 06/05/22 12:25 6 06/05/22 12:19 6 06/05/22 07:53
[2022-06-05] MEDS: oxyCODONE HCL IR 5 MG TAB (IMMEDIATE RELEASE) PO PRN (16:02)
[2022-06-05] MEDS: GABAPENTIN 300 MG CAP PO SCH ×2 (17:31→22:30)
[2022-06-05] MEDS: ceFAZolin 2000MG 2,000 MG/15 ML SYR IV SCH (18:11)
[2022-06-05] MEDS: BUPRENORPHINE/NALOXONE 8/2 MG TAB SL SCH (20:56)
[2022-06-05] MEDS: DOCUSATE SODIUM/SENNA 50/8.6MG TAB PO SCH (20:56)
[2022-06-06] MEDS: LACTATED RINGER'S 1,000 ML IV SCH ×2 (00:54→06:12)
[2022-06-06] MEDS: oxyCODONE HCL IR 5 MG TAB (IMMEDIATE RELEASE) PO PRN ×4 (00:56→22:15)
[2022-06-06] MEDS: ceFAZolin 2000MG 2,000 MG/15 ML SYR IV SCH (02:14)
[2022-06-06] MEDS: KETOROLAC 30 MG/ML VIAL IV SCH ×2 (02:14→08:33)
[2022-06-06] MEDS: ACETAMINOPHEN 500 MG TAB PO SCH (06:08)
[2022-06-06] MEDS: POLYETHYLENE (MIRALAX) 17 GM PACK PO SCH ×3 (06:09→17:30)
[2022-06-06] MEDS: GABAPENTIN 900 MG DOSE PO SCH (06:09)
[2022-06-06] MEDS: CeleBREX 200 MG CAP PO SCH (06:09)
--- NOTE | 2022-06-06 08:26 | Pain Management Consultation ---
Date of Consultation June 06, 2022 Assessment & Plan (1) Chronic back pain: (2) Status post lumbar surgery: (3) Lumbar postlaminectomy syndrome: (4) Obesity, morbid, BMI 40.0-49.9: Plan 1. We will discontinue gabapentin due to concomitant utilization of Lyrica 150 mg 3 times daily as the patient reports no prior efficacy from gabapentin therapy 2. Due to his chronic utilization of Suboxone we discussed current literature regarding postoperative pain control. Patient will likely require slightly higher dosage of short acting opiate therapy in the postsurgical timeframe due to the antagonistic effect of Suboxone therapy. He may consider discussion of slight increase in Suboxone therapy for short duration in the outpatient setting with his prescribing physician to be used for increased pain in the postoperative period upon discharge. 3. During his inpatient stay, patient was encouraged to continue with Oxy IR 10 mg every 4 hours as needed for breakthrough pain as it is providing efficacy without notable side effects 4. Patient may reserve hydromorphone IV for breakthrough pain not well controlled with Oxy IR 5. There appears to be no need for initiation of CUTTER OUT therapy at this time given adequate pain control with Oxy IR Thank you for allowing us to participate in the care of Mr. Betancourt History of Present Illness Reason for Consultation: Intractable back pain status post lumbar spine revision surgery with T12-L4 fusion Requesting Physician: Ronnie Quintana DO Attending Physician: Ronnie Quintana DO History of Present Illness Mr. Betancourt is a 51-year-old morbidly obese white male with a history of chronic intractable low back and left lower extremity radicular pattern pain has prior history of lumbar spine surgery who underwent revision yesterday on 06/05/2022 with resultant T12-L4 fusion. Patient has history of chronic opioid utilization and has been on Suboxone 8 mg twice daily over the past [address] Street in [place]. Patient reports that Suboxone has been adequately controlling his chronic low back pain until recently when he experienced increased discomfort which led to his surgical procedure yesterday. Patient describes his pain as a deep aching and episodically sharp as if someone is "hitting his back with a sledgehammer". He experiences pain in the left lower extremity laterally in the thigh stopping at the knee. His pain is 70% axial and 30% radicular. Patient reports his current back pain is a 7-8/10 and his leg pain is a 4-5/10. Patient has been utilizing Oxy IR postoperatively which he reports is efficacious at diminishing his pain and did allow him to sleep for 4-6 hours last night without interruption. He has not been moving much so it is hard to assess pain with movement. He denies radicular pattern pain below the level of the knee. He denies abdominal fullness. Patient has not had bowel movement upon this admission. He reports typical bowel movements are every 2-3 days. He does not utilize stool softener in the outpatient setting on a consistent basis. He reports chronic utilization of Lyrica 150 mg 3 times daily. Gabapentin was initiated upon this admission which he reports has not been efficacious at diminishing pain in the past. Patient denies bowel or bladder incontinence or saddle anesthesia. He has no further constitutional complaints. Plan of care discussed with Dr. Tish Ayoub. Pain Assessment Full Body Front + Back: 1. Axial lumbosacral spine pain 2. Left lateral thigh pain stopping at knee Pain scale - at its best (0-10): 4 Pain scale - at its worst (0-10): 9 Allergies Allergy/AdvReac Type Severity Reaction Status Date / Time Iodinated Contrast Media Allergy Intermediate Itching, Verified 06/05/22 07:51 swelling iodine Allergy Intermediate Itching, Verified 06/05/22 07:51 swelling shellfish derived Allergy Intermediate Swelling Verified 06/05/22 07:51 Home Medications Medication Instructions Recorded Confirmed Type buprenorphine 8 mg-naloxone 2 mg 1 tab sublingual BID 11/10/20 06/05/22 History sublingual tablet pregabalin 150 mg capsule (Lyrica) 150 mg PO QID 11/10/20 06/05/22 History menthol 4 % topical gel (Biofreeze 1 applic topical TID PRN Pain 01/01/21 06/05/22 History (menthol)) venlafaxine 225 mg tablet,extended 225 mg PO DAILY 06/05/22 06/05/22 History release 24 hr Pain History Pain Intensity Pain scale - at its best (0-10): 4 Pain scale - at its worst (0-10): 9 Patient History Medical History (Updated 06/05/22 @ 15:46 by Zoila Martinez PA-C) Anxiety Chronic back pain Degenerative disc disease Depression History of COVID-19 Covid positive 11/2020 (tested for preop, was asymptomatic) Surgical History (Updated 06/05/22 @ 15:46 by Zoila Martinez PA-C) Fusion of spine L2-L4 decompression fusion 01/01/21: Grade 1 view, Glidescope #4 ETT 8.0. History of arthroscopy Right knee x multiple History of esophagogastroduodenoscopy (EGD) History of eye surgery Right retinal repair History of sinus surgery History of tonsillectomy S/P epidural steroid injection lumbar S/P lumbar spinal fusion lumbar fusions (has had 3 prior to 2020, beginning in 2009) Family History Other No family history of adverse response to anesthesia No pertinent family history Social History Smoking Status: Current every day smoker Cigarettes Per Day: 1 pk/day x 30 years; Second Hand Exposure: No; Do You Dip or Chew Tobacco: Yes (Occasional- advised none DOS); Tobacco Cessation Education Requested by Patient: No Hx Alcohol Use: No Hx Substance Use: No Preferred Language: Spanish Communication Ability: Effective Outside Machinist Helper Required: No Beliefs That Will Affect Care: None marital status: Single Current Living Situation: Parent Current Living Situation Comment: lives with mother Other Information That Helps Us Care for You: No Feels Safe at Home: Yes Safety Concerns: Feels Safe At This Time Assistive Devices: Glasses Physical Exam Physical Exam: General: Patient lying quietly in exam room in no acute distress. Speech and thought process appropriate. Mood and affect appropriate. Cognition intact. Patient morbidly obese and physically deconditioned. Head: Normocephalic and atraumatic. ENT: No evidence of nasal or oral mucosal lesions. Mucous membranes are moist. Eyes: Pupils equal round reactive to light. Neck: Supple without adenopathy and full range of motion. Abdomen: Soft and nondistended. No organomegaly. Bowel sounds active. Back/spine: Patient was able to logroll towards his right side. Large dressing was intact status post a surgical procedure which was not removed for visual inspection. Some generalized tenderness over the lumbosacral region into the gluteal musculature. Lower extremities: Strength testing 5/5 with dorsiflexion, plantarflexion, EHL testing and knee flexion/extension bilaterally. Sensation intact without deficit. No appreciable edema. Neurologic: Cranial nerves grossly intact. Ambulatory function not witnessed. Results ([facility]) Diagnostic Review Radiology Findings: [place], [place] [phone] Fluoroscopy Report Patient:NIRMAL BETANCOURT Admit Date:06/05/22 MR#:[id number] Address1:[address] Acct ID:[id number] Address2: Date:1970 [facility] Zip:[place] [address] Age:51 Location:[facility] Sex:M Room/Bed:[place] [address] Att Phy:Ronnie Quintana D.O. Diagnosis:Spinal Stenosis, Cervical Region [place] Phy:Barbie Zayas MD Service Date:06/05/22 Fam Phy: Interpreting Phy:Danny Craven MDAdmit Phy:Ronnie Quintana D.O. Ordering Phy:Ronnie Quintana D.O. cc: ~ DE lumbar spine 2-3V CLINICAL HISTORY: Hardware removal. Decompression and fusion. COMPARISON STUDY: Lumbar spine radiographs December 06, 2011. Fluoroscopic images of the lumbar spine January 01, 2021. FLUOROSCOPY TIME: 21 seconds. FLUOROSCOPIC IMAGES: 3 FINDINGS: L2-L4 hardware removal. Previous L4-L5 discectomy is present. Interval L1-L2 discectomies interbody spacer placement. There is a previous L2-L3 discectomy. Posterior decompression is noted. Bilateral pedicle screw fusion from T2 through L4 is noted. IMPRESSION: Fluoroscopy provided during hardware removal, L1-L2 discectomy, posterior decompression and T12-L4 bilateral pedicle screw fusion. ACT 112: Negative or not required by law. Electronically signed by: Danny Craven M.D. 06/05/2022 12:58 PM Dictated:06/05/22 1255 Transcribed: 06/05/22 1258
[2022-06-06] MEDS: dexAMETHasone 6 MG in SYRINGE 0 ML IV SCH (08:33)
[2022-06-06] MEDS: GABAPENTIN 300 MG CAP PO SCH (08:33)
[2022-06-06] MEDS: PREGABALIN 150 MG CAP PO SCH ×3 (08:33→20:02)
[2022-06-06] MEDS: VENLAFAXINE HCL XR 75 MG CAPXR PO SCH (08:33)
[2022-06-06] MEDS: BUPRENORPHINE/NALOXONE 8/2 MG TAB SL SCH ×2 (08:33→20:02)
--- NOTE | 2022-06-06 08:33 | Orthopedic Progress Note ---
Date of Service June 06, 2022 Assessment & Plan (1) Neurogenic claudication due to lumbar spinal stenosis: Plan: This time initiate physical therapy monitor his BROOK output overly discharge home next day or so. Admission and Anticipated Discharge Date Admission Date: June 05, 2022 Subjective Patient's back pain is controlled. He feels his leg symptoms are improved. Physical Exam Physical Exam: On exam appears comfortable. He does have good strength testing lower extremities. Results & Data ([facility]) Vital Signs (Past 12 Hours) Vital Signs Temp Pulse Resp BP Pulse Ox O2 Del Method O2 Flow Rate 06/06/22 06:10 36.5 C 61 16 97/61 L 93 Nasal Cannula 2 06/06/22 04:37 36.7 C 60 18 101/66 95 Nasal Cannula 2 06/05/22 21:01 Nasal Cannula 2 06/05/22 22:34 36.7 C 80 18 119/72 92 Nasal Cannula 2 06/05/22 21:01 92 Nasal Cannula 2 06/05/22 21:00 87 L Room Air
[2022-06-06] MEDS ORDERED: VENLAFAXINE HCL XR 150 MG CAPXR PO SCH (09:00)
[2022-06-06 10:12] LABS: Basophils # (auto) 0.04 K/uL (0-0.2); Basophils % (auto) 0.3 %; Eosinophils # (auto) 0.01 K/uL (0-0.50); Eosinophils % (auto) 0.1 %; Hematocrit (blood only) 35.6 % (40.1-51.0); Hemoglobin 12.2 g/dl (14.0-18.0); Immature Granulocytes # (auto) 0.11 K/uL (0.00-0.02); Immature Granulocytes % (auto) 0.7 %; Lymphocytes # (auto) 2.36 K/uL (1.2-3.4); Lymphocytes % (auto) 14.9 %; Mean Corpuscular Hemoglobin 31.3 pg (25.0-34.0); Mean Corpuscular Hgb Conc 34.3 g/dL (32.0-36.0); Mean Corpuscular Volume 91.3 fL (80.0-100.0); Mean Platelet Volume 10.5 fL (9.4-12.4); Neutrophils # (auto) 12.55 K/uL (1.4-6.5); Platelet Count 222 K/uL (130-400); RDW Coefficient of Variation 12.8 % (11.5-14.5); RDW Standard Deviation 41.7 fL (36.4-46.3); White Blood Count 15.87 K/ul (4.8-10.8)
[2022-06-06 10:39] LABS: BUN Creatinine Ratio 25.7 (10-20); Calcium 8.6 mg/dl (8.5-10.1); Creatinine Clr Calc Pharmacy 162.2 ml/min; Est GFR (African American) 124.7 ml/min; Est GFR (Non-African American) 107.6 ml/min; Potassium 4.3 mmol/L (3.5-5.1)
--- NOTE | 2022-06-06 15:22 | Hospitalist Progress Note ---
Date of Service June 06, 2022 Assessment & Plan (1) Neurogenic claudication due to lumbar spinal stenosis: (2) Status post lumbar surgery: (3) Chronic back pain: Plan: Post op day# 0 S/P Removal hardware L2-L4, decompression and fusion T12-L2 by Dr Lilian CHUA#250ml -wound management per ortho -PT/OT as appropriate -DVT prophylaxis per ortho -incentive spirometry -monitor H&H for acute blood loss anemia; pre-op Hgb: 14 -ortho spine continued home Suboxone and Lyrica and consulted pain management - recs appreciated (4) Anxiety: Plan: -Continue home venlafaxine (5) Obesity, morbid, BMI 40.0-49.9: Plan: BMI: 43.7 -Consider lifestyle modifications (6) DVT prophylaxis: Plan: -SCDs per ortho spine Disposition per primary team Follows with Dr Barbie Zayas in [place] for routine care Pt was seen and care coordinated with Dr Rand. See addendum Thank you for this consultation. We will follow the patient with you during their hospital stay. You can [facility] via [email or web address] Admission and Anticipated Discharge Date Admission Date: June 05, 2022 Subjective Patient's back pain is controlled. He feels his leg symptoms are improved. Review of Systems Review of Systems: All systems reviewed & are unremarkable except as noted in Subjective Physical Exam Physical Exam: General: no distress, obese Head: normocephalic, atraumatic Eyes: conjunctiva non-injected, anicteric ENT: normal inspection external ears, nose, mucous membranes moist Neck: supple, trachea midline Lungs: clear, no respiratory distress, no wheezing/rhonchi/rales CV: RRR, no murmur, no pretibial edema Abd: normal BS, soft, non-tender Back: +BROOK drain in place with serosanguineous drainage Ext: no cyanosis, no calf tenderness; able to flex and extend bilateral feet Neuro: A&O x 3, no focal deficits noted, normal affect Skin: warm, dry Results & Data Results & Data ([facility]) Vital Signs (Past 12 Hours) Vital Signs Temp Pulse Resp BP Pulse Ox Pulse Ox O2 Del Method 06/06/22 08:45 Room Air 06/06/22 08:45 95 06/06/22 06:10 36.5 C 61 16 97/61 L 93 Nasal Cannula 06/06/22 04:37 36.7 C 60 18 101/66 95 Nasal Cannula O2 Del Method O2 Flow Rate 06/06/22 08:45 06/06/22 08:45 Room Air 06/06/22 06:10 2 06/06/22 04:37 2 Laboratory Results Short CBC 06/06/22 Range/Units 09:54 WBC 15.87 H (4.8-10.8) K/ul Hgb 12.2 L (14.0-18.0) g/dl Hct 35.6 L (40.1-51.0) % Plt Count 222 (130-400) K/uL BMP 06/06/22 09:54 Sodium 137 Potassium 4.3 Chloride 107 Carbon Dioxide 25 BUN 19 Creatinine 0.74 Glucose 142 H Calcium 8.6 Medications Administered Current Inpatient Medications Acetaminophen (Acetaminophen 500 Mg Tab) 1,000 mg PO PREOP GABI Stop: 07/05/22 05:59 Last Admin: 06/06/22 06:08 Dose: Not Given Acetaminophen (Acetaminophen 500 Mg Tab) 1,000 mg PO Q8H PRN PRN Reason: MILD Pain Scale 1,2,3 & Pre PT Stop: 07/05/22 14:05 Al Hydrox/Mg Hydrox/Simethicone (Aluminum/Magnesium Susp 30 Ml Udc) 30 ml PO Q6H PRN PRN Reason: Dyspepsia Stop: 07/05/22 14:05 Bisacodyl (Bisacodyl 10 Mg Supp) 10 mg GA DAILY PRN PRN Reason: Constipation Stop: 07/05/22 14:05 Buprenorphine/Naloxone (Buprenorphine/Naloxone 8/2 Mg Tab) 1 tab SL BID GABI Stop: 07/05/22 20:59 Last Admin: 06/06/22 08:33 Dose: 1 tab Celecoxib (Celebrex 200 Mg Cap) 200 mg PO PREOP GABI Stop: 07/05/22 05:59 Last Admin: 06/06/22 06:09 Dose: Not Given Diphenhydramine HCl (Diphenhydramine Capsule 25 Mg Cap) 25 mg PO Q6H PRN PRN Reason: Allergic Rhinitis/Insomnia Stop: 07/05/22 14:05 Famotidine (Famotidine 20 Mg Tab) 20 mg PO Q12H PRN PRN Reason: Dyspepsia Stop: 07/05/22 14:05 Gabapentin (Gabapentin 900 Mg Dose) 900 mg PO PREOP GABI Stop: 07/05/22 05:59 Last Admin: 06/06/22 06:09 Dose: Not Given Hydromorphone HCl (Hydromorphone Inj 0.5 Mg/0.5 Ml Syr) 0.5 mg IV Q3H PRN PRN Reason: MODERATE Pain (Scale 4,5,6) & Pre PT Stop: 06/19/22 14:05 Hydromorphone HCl (Hydromorphone Inj 1 Mg/Ml Syringe) 1 mg IV Q3H PRN PRN Reason: SEVERE Pain (Scale 7,8,9,10) Stop: 06/19/22 14:05 Hydroxyzine HCl (Hydroxyzine Hcl 25 Mg Tab) 25 mg PO Q8H PRN PRN Reason: Anxiety Stop: 07/05/22 14:05 Promethazine HCl 12.5 mg/ (Sodium Chloride) 50.5 mls @ 202 mls/hr IV Q6H PRN PRN Reason: Nausea &/or Vomiting Stop: 07/05/22 14:05 Lorazepam 0.5 mg/ Syringe 0.5 mls @ 2 mls/min IV Q8H PRN PRN Reason: Sedation/Anxiety Stop: 07/05/22 14:05 Dexamethasone 6 mg/ Syringe 1.5 mls @ 1 mls/min IV DAILY GABI Stop: 06/08/22 09:02 Last Admin: 06/06/22 08:33 Dose: 1 mls/min Lorazepam (Lorazepam 0.5 Mg Tab) 0.5 mg PO Q8H PRN PRN Reason: Sedation/Anxiety Stop: 07/05/22 14:05 Magnesium Hydroxide (Magnesium Hydroxide Susp 30 Ml Udc) 30 ml PO Q24H PRN PRN Reason: Constipation Stop: 07/05/22 14:05 Metoclopramide HCl (Metoclopramide Hcl Inj 5 Mg/Ml 2 Ml Vial) 10 mg IV Q6H PRN PRN Reason: Nausea &/or Vomiting Stop: 07/05/22 14:05 Naloxone HCl (Naloxone Hcl 0.4 Mg/1 Ml Vial/Carp) 0.1 mg IV Q5M PRN PRN Reason: Oversedation/Resp depression Stop: 07/05/22 14:05 Ondansetron HCl (Ondansetron Inj 2 Mg/Ml 2 Ml Vial) 4 mg IV Q6H PRN PRN Reason: Nausea &/or Vomiting Stop: 07/05/22 14:05 Ondansetron HCl (Ondansetron 4 Mg Od Tab) 4 mg PO Q6H PRN PRN Reason: Nausea Stop: 07/05/22 14:05 Oxycodone HCl (Oxycodone Hcl Ir 5 Mg Tab (Immediate Release)) 5 - 10 mg PO Q4H PRN PRN Reason: Pain & Pre PT Stop: 06/19/22 14:05 Last Admin: 06/06/22 10:36 Dose: 10 mg Polyethylene Glycol (Polyethylene (Miralax) 17 Gm Pack) 17 gm PO Q6 GABI Stop: 07/06/22 05:59 Last Admin: 06/06/22 13:02 Dose: Not Given Pregabalin (Pregabalin 150 Mg Cap) 150 mg PO TID GABI Stop: 07/05/22 14:05 Last Admin: 06/06/22 14:16 Dose: 150 mg Senna/Docusate Sodium (Docusate Sodium/Senna 50/8.6mg Tab) 2 tab PO HS GABI Stop: 07/05/22 20:59 Last Admin: 06/05/22 20:56 Dose: 2 tab Sodium Biphosphate/Sodium Phosphate (Sod Phosphate/Sod Biphosphate Enema 132 Ml Btl) 132 ml GA ONE PRN PRN Reason: Constipation Stop: 07/05/22 14:05 Venlafaxine HCl (Venlafaxine Hcl Xr 75 Mg Capxr) 225 mg PO DAILY GABI Stop: 07/06/22 08:59 Last Admin: 06/06/22 08:33 Dose: 225 mg
[2022-06-06] MEDS: DOCUSATE SODIUM/SENNA 50/8.6MG TAB PO SCH (20:02)
[2022-06-07] MEDS: POLYETHYLENE (MIRALAX) 17 GM PACK PO SCH ×3 (00:06→12:07)
[2022-06-07] MEDS: oxyCODONE HCL IR 5 MG TAB (IMMEDIATE RELEASE) PO PRN ×2 (02:19→12:18)
[2022-06-07] MEDS: VENLAFAXINE HCL XR 75 MG CAPXR PO SCH (08:05)
[2022-06-07] MEDS: BUPRENORPHINE/NALOXONE 8/2 MG TAB SL SCH (08:05)
[2022-06-07] MEDS: PREGABALIN 150 MG CAP PO SCH ×2 (08:05→13:30)
[2022-06-07] MEDS: dexAMETHasone 6 MG in SYRINGE 0 ML IV SCH ×2 (08:06→08:51)
[2022-06-07 10:16] LABS: Basophils # (auto) 0.05 K/uL (0-0.2); Basophils % (auto) 0.4 %; Eosinophils # (auto) 0.08 K/uL (0-0.50); Eosinophils % (auto) 0.7 %; Hematocrit (blood only) 34.8 % (40.1-51.0); Hemoglobin 11.6 g/dl (14.0-18.0); Immature Granulocytes # (auto) 0.12 K/uL (0.00-0.02); Lymphocytes # (auto) 3.98 K/uL (1.2-3.4); Lymphocytes % (auto) 33.9 %; Mean Corpuscular Hemoglobin 30.9 pg (25.0-34.0); Mean Corpuscular Hgb Conc 33.3 g/dL (32.0-36.0); Mean Corpuscular Volume 92.8 fL (80.0-100.0); Mean Platelet Volume 10.6 fL (9.4-12.4); Monocytes # (auto) 0.81 K/uL (0.24-0.82); Monocytes % (auto) 6.9 %; Neutrophils # (auto) 6.71 K/uL (1.4-6.5); Neutrophils % (auto) 57.1 %; Platelet Count 210 K/uL (130-400); RDW Coefficient of Variation 12.8 % (11.5-14.5); RDW Standard Deviation 43.2 fL (36.4-46.3); Red Blood Count 3.75 M/uL (4.63-6.08); White Blood Count 11.75 K/ul (4.8-10.8)
--- NOTE | 2022-06-07 11:03 | Hospitalist Progress Note ---
Date of Service June 07, 2022 Assessment & Plan (1) Neurogenic claudication due to lumbar spinal stenosis: (2) Status post lumbar surgery: (3) Chronic back pain: Plan: Post op day# 1 S/P Removal hardware L2-L4, decompression and fusion T12-L2 by Dr Quintana EBL#[id number] -wound management per ortho -PT/OT as appropriate -DVT prophylaxis per ortho -incentive spirometry -monitor H&H for acute blood loss anemia; hgb stable at 11.6 (12.2 yesterday). Pre-op Hgb: 14 -ortho spine continued home Suboxone and Lyrica and consulted pain management - recs appreciated (4) Anxiety: Plan: -Continue home venlafaxine (5) Obesity, morbid, BMI 40.0-49.9: Plan: BMI: 43.7 -Consider lifestyle modifications (6) DVT prophylaxis: Plan: -SCDs per ortho spine Disposition per primary team Follows with Dr Barbie Zayas in [place] for routine care Pt was seen and care coordinated with Dr. Pantoja. See addendum Thank you for this consultation. We will follow the patient with you during their hospital stay. You can reach a member of the [facility] Hospitalist Team 14/04 via [employer] Admission and Anticipated Discharge Date Admission Date: June 05, 2022 Supervising Physician Co-Signing Physician Notes Patient is a 51-year-old male with history of mood disorder, morbid obesity and other medical problems was consulted for postop medical management after having lumbar surgery for lumbar spinal stenosis with neurogenic claudication by Dr. Quintana. Patient is doing well postoperatively. He reports having pain at his surgical site with some improvement but otherwise denies any chest pain, shortness of breath, dizziness, nausea, abdominal pain. On exam patient is morbidly obese, no apparent distress, normocephalic atraumatic, EOMI, normal breath sounds, clear to auscultation, S1-S2, no murmur, no pedal edema, abdomen soft, nontender, normal bowel sounds. Monitor for postoperative anemia, contin ue incentive spirometer. PT OT. Bowel regimen to prevent constipation. Wound care, DVT prophylaxis as per primary team. Pain management consulted as well. Continue venlafaxine for mood disorder. I personally reviewed the record. Patient is interviewed and examined at bedside. Patient's care is coordinated with RENE. Please refer to the documentation above for details of patient's presentation and for discussion of other issues. Subjective Patient seen and examined in 386 bed 2. Patient has been ambulating the halls this morning without issue. States he is ready go home. Some surgical site discomfort but denies any pain or numbness in bilateral lower extremities. Tolerating diet without nausea or vomiting. Urinating without issue. Had multiple bowel movements last evening. Denies any fever, chills, headache, chest pain, shortness of breath, abdominal pain, dysuria or diarrhea. Review of Systems Review of Systems: At least ten systems reviewed and negative except as noted in the HPI. Physical Exam Physical Exam: Gen: WD/WN, NAD, sitting on side of bed, A&Ox3, obese HEENT: Normocephalic, atraumatic, conjunctivae moist, sclerae anicteric, mucous membranes moist Lung: Clear to Auscultation bilaterally, no wheezes/rales/rhonchi Heart: Regular rate, regular rhythm, no murmurs, rubs, or gallops Abdomen: Soft, NT, ND +BS x 4 Extremities: +Spinal dressing c/d/i. BROOK drain visualized. No edema Skin: Warm, no rash Results & Data Results & Data ([facility]) Vital Signs (Past 12 Hours) Vital Signs Temp Pulse Resp BP Pulse Ox 06/07/22 07:39 36.7 C 67 16 109/71 97 Laboratory Results Short CBC 06/07/22 Range/Units 09:45 WBC 11.75 H (4.8-10.8) K/ul Hgb 11.6 L (14.0-18.0) g/dl Hct 34.8 L (40.1-51.0) % Plt Count 210 (130-400) K/uL Diagnostic Findings Spine X-Ray 06/05/22 00:00 FL spine 1V any level CLINICAL HISTORY: PA VIEW FOR NEEDLE COUNT COMPARISON STUDY: Fluoroscopic images of the spine performed earlier today. FLUOROSCOPY TIME: 1 second. FLUOROSCOPIC IMAGES: 1 FINDINGS: No unexpected radiopaque foreign bodies are identified. Multilevel discectomy, posterior decompression and fusion are partially imaged. IMPRESSION: No unexpected radiopaque foreign bodies. ACT 112: Negative or not required by law. Electronically signed by: Danny Craven M.D. 06/05/2022 12:17 PM Lumbar Spine X-Ray 06/05/22 09:05 FL lumbar spine 2-3V CLINICAL HISTORY: Hardware removal. Decompression and fusion. COMPARISON STUDY: Lumbar spine radiographs December 06, 2011. Fluoroscopic images of the lumbar spine January 01, 2021. FLUOROSCOPY TIME: 21 seconds. FLUOROSCOPIC IMAGES: 3 FINDINGS: L2-L4 hardware removal. Previous L4-L5 discectomy is present. Interval L1-L2 discectomies interbody spacer placement. There is a previous L2-L3 discectomy. Posterior decompression is noted. Bilateral pedicle screw fusion from T2 through L4 is noted. IMPRESSION: Fluoroscopy provided during hardware removal, L1-L2 discectomy, posterior decompression and T12-L4 bilateral pedicle screw fusion. ACT 112: Negative or not required by law. Electronically signed by: Danny Craven M.D. 06/05/2022 12:58 PM
--- NOTE | 2022-06-07 11:51 | Discharge Summary ---
Date of Service June 07, 2022 Admission HPI Per Admitting Provider This is a 51-year-old male presents with chronic persistent back and leg pain. During the course of nonoperative care is here for surgical invention. Principal Diagnosis Lumbar spinal stenosis with neurogenic claudication Discharge Data Allergies Allergy/AdvReac Type Severity Reaction Status Date / Time Iodinated Contrast Media Allergy Intermediate Itching, Verified 06/05/22 07:51 swelling iodine Allergy Intermediate Itching, Verified 06/05/22 07:51 swelling shellfish derived Allergy Intermediate Swelling Verified 06/05/22 07:51 Consultations 06/05/22 14:06 Consult Hospitalist Routine Consult Pain Management Routine Procedures Performed Operation Date: 06/05/22 09:05 Actual Procedures p L1-L2 and L5-S1 Decompression, T12-S1 Fusion, Spinal Cord Monitoring - Ronnie Quintana DO s L2-L4 Hardware Removal, - Ronnie Quintana DO Ordered Studies 06/05/22 FL spine 1V any level Stat 06/05/22 09:05 FL lumbar spine 2-3V Routine Hospital Course (1) Neurogenic claudication due to lumbar spinal stenosis: Patient with lumbar decompression fusion tolerated this well was taken to orthopedic for postoperative. Postop day 1 he was up and ambulating progressed to postop day #2. Pain well controlled. BROOK drain decreasing probably. Excellent strength testing. Subsequently discharged home. Discharge orders instructions from the chart for further review. Total Time Total Time Spent Total Time Spent (In Minutes): 20 minutes Discharge Plan Discharge Items Patient Disposition: Home - Self-Care Reason For Visit: Spinal Stenosis, Cervical Region Discharge Diagnosis: ACTIVITY RECOMMENDATIONS: SELF CARE INSTRUCTIONS AFTER THORACIC/LUMBAR FUSIONS 1. You may walk to your tolerance. It is good exercise for your legs and back. Expect some back and intermittent leg aches and pains. 2. You may perform "counter-top" level activities (make a sandwich, steffi with a project, etc.). 3. No bending or lifting of more than 10 pounds or back twisting of any nature (roll like a log when turning in bed). 4. You may ride in a car for 20-30 minutes at a time. No driving until after your first visit with your doctor. 5. Frequent changes of position and restricting sitting to 30 minutes at a time will help limit the amount of back spasms and stiffness you may experience. 6. You may discontinue the use of ambulatory aids (cane, crutches, etc.) once your strength and confidence allow. 7. You may call center coordinator the shower and let water strike your incision when you arrive home at least once daily. Do not take a tub bath, sit in a hot tub or go into a swimming pool until after your first recheck in the office. SPECIAL CARE INSTRUCTIONS: VERY IMPORTANT TO READ AND REVIEW A. Your surgical incision has been closed with a cosmetic suture under the skin that will dissolve in about 6 weeks. In 14 days, you can use a pair of clean scissors and cut the suture that is left outside of the skin at the ends of your incision. 1. The small skin tapes can be removed 7 days after surgery if they have not fallen off by that point. 2. You may keep the wound open to air as much as possible to promote healing after post-op day number 5 unless told otherwise by your doctor. 3. If you think the wound looks like it is becoming infected (redness or worsening drainage) and/or you are experiencing fever, chill or worsening back pain and muscle spasms, contact the office so that we may evaluate you as soon as possible. B. Complications are uncommon, but please contact us if you have any signs or symptoms of: 1. wound infection (fever higher than 102.5 degrees F, redness, separation of wound, drainage, or increasing pain from the incision) 2. blood clots in legs (pain, swelling, redness and warmth in legs) 3. urinary tract infection (fever higher than 102.5 degrees F, burning upon urination or increased frequency of urination) 4. nerve problems (inability to walk on your toes or heels, numbness, loss of bowel or bladder control) 5. any other symptoms that concern you C. Please call the office at if you have any concerns or questions about your operation or recovery. D. No smoking! Smoking drastically decreases the chance of a solid fusion. E. Do not take any anti-inflammatory medications (Indocin, Advil, Motrin, Aspirin, Naprosyn, etc.) as these may inhibit the chance of a solid fusion. Tylenol is okay to take for pain. MANAGING PAIN AFTER SPINAL SURGERY 1. Narcotic medication is intended for short-term use and will be provided for surgical pain. Surgical pain usually lasts for a period of 4-6 weeks. Narcotic medication includes Percocet, Vicodin, Darvocet, Tylenol #3 or Lortab. 2. Longer-term pain is more appropriately treated with non-narcotic medication such as Tylenol ES. 3. Muscle spasm is not appropriately treated with narcotics. Muscle relaxers such as Soma, Flexeril or Skelaxin can be used along with Tylenol ES. 4. Remember that we all live with some "aches and pains". This is not unusual or uncommon after an injury or as we get older. a. Back pain is expected and may include muscle spasms for 4 to 6 weeks after surgery. The pain should gradually improve. If the pain worsens for no apparent reason, please contact the office. b. Intermittent leg pain may also be experienced and should not be concerned about unless it worsens for no apparent reason. If so, please contact the office. 5. We will provide appropriate medication within the normal guidelines of their prescribed use. We will also be very cautious and aware of potential abuse and extended duration of patients' medication needs. a. Pain medications are for your comfort and to assist with sleep and rest so that the tissue can heal. They are not provided in order to return to normal activity and should not be used through the day. To do so or worsening pain at night can result from ongoing tissue damage and development of tolerance to the prescribed medicine. 6. Please allow 2-3 days to process refills. Prescriptions will not be mailed but must be picked up at the office. FOLLOW UP VISIT: Keep your scheduled follow-up appointment. Any questions, please call the office at . Activity: As commented below Non-emergency contact: Primary Care Provider Call non-emergency contact if: you have any medication questions Follow-up/Referrals: Barbie Zayas MD [Primary Care Provider] - Diet: Regular Addtl Attending Provider Instructions: ACTIVITY RECOMMENDATIONS: SELF CARE INSTRUCTIONS AFTER THORACIC/LUMBAR FUSIONS 1. You may walk to your tolerance. It is good exercise for your legs and back. Expect some back and intermittent leg aches and pains. 2. You may perform "counter-top" level activities (make a sandwich, steffi with a project, etc.). 3. No bending or lifting of more than 10 pounds or back twisting of any nature (roll like a log when turning in bed). 4. You may ride in a car for 20-30 minutes at a time. No driving until after your first visit with your doctor. 5. Frequent changes of position and restricting sitting to 30 minutes at a time will help limit the amount of back spasms and stiffness you may experience. 6. You may discontinue the use of ambulatory aids (cane, crutches, etc.) once your strength and confidence allow. 7. You may call center coordinator the shower and let water strike your incision when you arrive home at least once daily. Do not take a tub bath, sit in a hot tub or go into a swimming pool until after your first recheck in the office. SPECIAL CARE INSTRUCTIONS: VERY IMPORTANT TO READ AND REVIEW A. Your surgical incision has been closed with a cosmetic suture under the skin that will dissolve in about 6 weeks. In 14 days, you can use a pair of clean scissors and cut the suture that is left outside of the skin at the ends of your incision. 1. The small skin tapes can be removed 7 days after surgery if they have not fallen off by that point. 2. You may keep the wound open to air as much as possible to promote healing after post-op day number 5 unless told otherwise by your doctor. 3. If you think the wound looks like it is becoming infected (redness or worsening drainage) and/or you are experiencing fever, chill or worsening back pain and muscle spasms, contact the office so that we may evaluate you as soon as possible. B. Complications are uncommon, but please contact us if you have any signs or symptoms of: 1. wound infection (fever higher than 102.5 degrees F, redness, separation of wound, drainage, or increasing pain from the incision) 2. blood clots in legs (pain, swelling, redness and warmth in legs) 3. urinary tract infection (fever higher than 102.5 degrees F, burning upon urination or increased frequency of urination) 4. nerve problems (inability to walk on your toes or heels, numbness, loss of bowel or bladder control) 5. any other symptoms that concern you C. Please call the office at if you have any concerns or questions about your operation or recovery. D. No smoking! Smoking drastically decreases the chance of a solid fusion. E. Do not take any anti-inflammatory medications (Indocin, Advil, Motrin, Aspirin, Naprosyn, etc.) as these may inhibit the chance of a solid fusion. Tylenol is okay to take for pain. MANAGING PAIN AFTER SPINAL SURGERY 1. Narcotic medication is intended for short-term use and will be provided for surgical pain. Surgical pain usually lasts for a period of 4-6 weeks. Narcotic medication includes Percocet, Vicodin, Darvocet, Tylenol #3 or Lortab. 2. Longer-term pain is more appropriately treated with non-narcotic medication such as Tylenol ES. 3. Muscle spasm is not appropriately treated with narcotics. Muscle relaxers such as Soma, Flexeril or Skelaxin can be used along with Tylenol ES. 4. Remember that we all live with some "aches and pains". This is not unusual or uncommon after an injury or as we get older. a. Back pain is expected and may include muscle spasms for 4 to 6 weeks after surgery. The pain should gradually improve. If the pain worsens for no apparent reason, please contact the office. b. Intermittent leg pain may also be experienced and should not be concerned about unless it worsens for no apparent reason. If so, please contact the office. 5. We will provide appropriate medication within the normal guidelines of their prescribed use. We will also be very cautious and aware of potential abuse and extended duration of patients' medication needs. a. Pain medications are for your comfort and to assist with sleep and rest s o that the tissue can heal. They are not provided in order to return to normal activity and should not be used through the day. To do so or worsening pain at night can result from ongoing tissue damage and development of tolerance to the prescribed medicine. 6. Please allow 2-3 days to process refills. Prescriptions will not be mailed but must be picked up at the office. FOLLOW UP VISIT: Keep your scheduled follow-up appointment. Any questions, please call the office at . Pending Studies at Discharge: No Stand-Alone Forms: [employer], Smoking Cessation Medications and DC Order Prescriptions: New oxycodone 5 mg tablet 5 mg PO Q6H PRN (Reason: pain, severe) Qty: 30 0RF tramadol 50 mg tablet 50 mg PO Q6H PRN (Reason: pain, moderate) Qty: 30 0RF Continued buprenorphine-naloxone 8-2 mg Tablet, Sublingual 1 tab SUBLINGUAL BID Rx Instructions: "stopped for surgery" pregabalin [Lyrica] 150 mg Capsule 150 mg PO QID Biofreeze (menthol) 4 % Gel 1 applic TOPICAL TID PRN (Reason: Pain) venlafaxine 225 mg tablet extended release 24hr 225 mg PO DAILY Discharge Orders: Discharge Order (Routine); Ordered 06/07/22 Ordered By: Ronnie Quintana Admission Data Admit Date/Time: 06/05/22 12:06 Attending Provider: Ronnie Quintana Admit Provider: Ronnie Quintana Primary Care Provider: Barbie Zayas Other Providers: Nae Bright ; Tish Ayoub ; Kin Pantoja ; Marian Amos
== END 2022-06-07 15:24 | disposition home or self-care (01) | DRG 454 ==
LOC: ASU 07:21 → PACUINP 12:06 → 3N 15:20